=== PATIENT | female | born 1990 | race Caucasian/White ===

== ENCOUNTER 2017-04-15 13:37 | Emergency (ER) | payer BC, MEDICAID ==
[~2017-04-15] VITALS: Ht 149.9 cm; Wt 43.5 kg
[~2017-04-15 13:37] MED LIST: AMOXICILLIN 50500 MG PO; BACTRIM DS 8001 TA1 PO; DICLOFENAC 50MG50 MG PO; DOXYCYCLINE100 M6 PO; FERROUS SULFAT325 M2 PO; LABETALOL 100M100 MG PO; LITHIUM CARB 3300 MG PO; MACROBID 100MG100 MG PO; MOTRIN 400MG.400 MG PO; OC; PERCOCET 5/3251 EACH PO; PRENATAL PLUS1 TA1 PO; PRILOSEC20 M1 PO; TAMIFLU 75MG CA75 MG PO; ZANTAC 150150 MG PO; ZOFRAN4 MG PO
[2017-04-15 13:53] LABS: URINE BILIRUBIN - DIPSTICK NEGATIVE (NEG); URINE BLOOD 1+ (NEG)
[2017-04-15 14:31] LABS: LYMPH # 2.4 K/mm3 (0.7-4.5); LYMPH % 30.4 % (10-50.0)
--- NOTE | 2017-04-15 14:34 | Emergency Room Report ---
See Addendum History of Present Illness Time Seen by MD Conte Presenting Problem in Triage Pt arrived:Walked Presenting Problem:PT REPORTS IS APPROX 7 WEEKS , DARK RED TO BROWNISH VAGINAL SPOTTING FOR APPROX AND HOUR AND CRAMPING IN L LOWER ABD. 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 N Clinical Suspician of Infection? N Mental Status: 1 - Regular (Normal Baseline) Sepsis Risk:Low Sepsis Risk Have you (or family members/close friends) recently traveled outside the [place]? N If Yes, where/when: Have you had exposure to infectious disease within the past month? N TB? Other? Specify: A0 , Rh pos, pos test with EDC by dates 12/07/16, patient of Dr. Espana, with scant brown vaginal spotting and cramping today. No fever or vomiting. No abdominal pain. No back pain or urinary sx. ALLERGIES Coded Allergies: Penicillins (08/16/15) Sulfa (Sulfonamide Antibiotics) (08/16/15) Uncoded Allergies: CODIENE (08/16/15) Home Medications Reported Medications No Known Home Medications History Medical History General CAD? No Angina: No DC: No Hypertension? Yes Hyperlipidemia? No CHF? No DVT? No PE? No COPD? No Asthma? No Anemia? No GERD? No Gastric ulcers? No GI Bleed? No Hernia? No Thyroid Problems? No Hypothyroidism? No CVA? No Seizures? No Diabetes? No Renal Insuffiency? No End Stage Renal Disease? No UTI? No Stones? No BPH? No GB Disease: No Nephritic Syndrome? No Asplenia? No Hepatitis? No Sickle Cell Disease? No Arthritis? No Migraines? No Cataracts? No Glaucoma? No MRSA? No HIV? No TB? No Anxiety? No Depression? No Cancer? 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 Physical Exam Vital Signs Vital Signs Date Time Temp Pulse Resp B/P Pulse O2 O2 Flow FiO2 Ox Delivery Rate 04/15 1522 72 18 94/60 100 04/15 1340 98.6 98 18 104/66 100 General Appearance normal appearance, WD/WN, no apparent distress, thin Eye Exam - bilateral eye normal exam, bilateral eye PERRL, bilateral eye EOMI Neck normal inspection, non-tender, supple, full range of motion Respiratory Status Yes: trachea midline, chest symmetrical, non tender chest. No: respiratory distress, tender on palpation, use of accessory muscles, pain on inspiration, pain on expiration, productive cough, non productive cough. Lung Sounds bilateral: normal breath sounds, lungs clear. Cardiovascular normal exam, regular rate/rhythm, no peripheral edema, no gallop, no JVD, no murmur, no rub, normal peripheral pulses Gastrointestinal normal bowel sounds, normal exam, soft, no organomegaly, no guarding, no rebound Extremities normal range of motion, normal inspection, no pedal edema Pelvic normal external exam, normal adnexa, no cerv. motion tender, no masses, scant blood in cervix, no tissue or clots; no lesions; uterus normal with no mass; no adnexal tenderness or mass, no discharge; no CMT. Nurse present during exam? Yes (Laural) Neurologic alert, normal exam, no motor/sensory deficits, oriented x 3 Skin intact, normal color Medical Decision Making LABS/Meds/Orders Pt receiving controlled substance in ED? No Results/Orders Laboratory Tests 04/15/17 1446: Beta HCG, Quant Cancelled 04/15/17 1420: Beta HCG, Quant 5141.9, WBC 7.9, RBC 4.44, Hgb 14.0, Hct 42.4, MCV 95.6, RDW 12.3, Plt Count 216, MPV 7.2 L, Gran % 63.3, Gran # 5.0, Lymphocytes % 30.4, Monocytes % 4.8, Eosinophils % 1.1, Basophils % 0.3, Lymphocytes # 2.4, Monocytes # 0.4, Eosinophils # 0.1, Basophils # 0.0, PUBS MCHC 33.0, MCH 31.5 H 04/15/17 1416: Ur Chlamydia DNA (PCR) Cancelled, Urine GC DNA Probe Cancelled 04/15/17 1347: C.trachomatis DNA (PETAR) Pending, N.gonorrhoeae RNA Pending, Urine Color YELLOW, Urine Appearance CLEAR, Urine pH 7.0, Ur Specific Husser <= 1.005, Urine Protein NEGATIVE, Urine Ketones NEGATIVE, Urine Blood 1+ H, Urine Nitrate NEGATIVE, Urine Bilirubin NEGATIVE, Urine Urobilinogen 0.2, Ur Leukocyte Esterase NEGATIVE, Urine RBC OCC, Urine WBC OCC, Ur Squamous Epith Cells 3-5, Urine Bacteria TRACE, Urine Glucose NEGATIVE Current Medication Orders Sig/Semaj Start time Last Medication Dose Route Stop Time Status Admin Sodium Chloride 10 ML PRN PRN 04/15 1430 AC IV 04/16 1426 Sodium Chloride 1,000 ML .Q1H1M 04/15 1430 DC 04/15 IV 04/15 1530 1453 Sodium Chloride 10 ML PRN PRN 04/15 1430 AC IV 04/16 1426 Sodium Chloride 1,000 ML .STK-MED ONE 04/15 1427 DC IV Orders Procedure Date/time Status IV SALINE LOCK 04/15 1426 Active CBC WITH AUTO DIFF 04/15 1417 Complete US TRANSVAGINAL PREG 04/15 1416 Active WET PREP 04/15 1416 Complete CARLYN PREP 04/15 1416 Complete BETA-HCG, QUANT 04/15 1416 Complete URINALYSIS/COMPLETE 04/15 1348 Complete URINE 04/15 1348 Complete CHLAMYDIA/GC 04/15 1347 Active XRAY/CT/US XRAY/CT/US Ultrasound pelvis US Interpretation by reviewed by me (d/w tech) US results good flow; pos intrauterine gestational sac w/o any further findings; no fluid. Departure Departure Time of Disposition 1534 Disposition DC Home or Self Care(routine) Clinical Impression Primary Impression: Vaginal bleeding during , antepartum Qualifiers: Trimester: first trimester Qualified Code: O46.91 - Antepartum hemorrhage, unspecified, first trimester Condition STABLE Referrals Cedric SEE,Haider Birch MD,Chaz (Family) Patient Instructions Threatened Additional Instructions See Dr. Espana for repeat bloodwork (quantitative hcG) in 72 hours and recheck. Discharge Counseling Counseled pt/family regarding diagnosis, test results, home care, follow up needs Prescriptions Current Visit Scripts No Known Home Medications ED Critical Care Critical Care No at 1531
--- OUTSIDE RECORDS SUMMARY | 2017-04-15 14:51 | External Medical Summary Rpt ---
Author Author , NICK Organization NICK Address Unknown Phone [email or web address] Care Team Providers Care It Network Engineer Name Role Phone A Thien CLEMENTS MD PSC, A Unavailable Unavailable Thien CLEMENTS MD PSC UJVE REDDY CHA, JUVE Unavailable Unavailable JR JUAN PABLO BUENO MD, Unavailable Unavailable MALORIE BARBOZA MD Unavailable Unavailable ESPANA MATTY, SEPANA Unavailable Unavailable MATTY MALORIE MATTY, ESPANA Unavailable Unavailable MATTY [facility] Unavailable Unavailable [place], [facility] Unavailable Unavailable [facility] Unavailable Unavailable [facility] Unavailable Unavailable INC, [facility], Unavailable Unavailable [facility], Unavailable Unavailable [facility] DEVONTE PURVIS, Unavailable Unavailable DEVONTE PURVIS MARTINEZ VAL, MARTINEZ Unavailable Unavailable VAL MARTINEZ VAL, MARTINEZ Unavailable Unavailable VAL Sebastian Kenney MD, Unavailable Unavailable Sebastian Kenney MD [facility], Unavailable Unavailable [facility] NISHA KNOX, Unavailable Unavailable NISHA REDDY ABILIO SCIFRES ANG, SCIFRES Unavailable Unavailable ANG JAYDON ESCOTO, SCIFRES Unavailable Unavailable TIGIST HENDERSON, SHAYNA Unavailable Unavailable SANTIAGO Purpose Continuity of Care Document - 11-04-2012 through 2016 Problems Code Diagnosis DOS Provider Status I10 ESSENTIAL 10-31-2016 [facility] HYPERTENSIO INC N J101 FLU D/T OTH 10-31-2016 [facility] VIRUS OTH INC RESP MANIFESTATI ONS [id number] ENCOUNTER 10-11-[address] [facility] INITIAL PHYSICIAN PRESCRIPTIO GROUP N CONTRACEPT PILLS Z7251 HIGH RISK 10-11-[address] [facility] HETEROSEXUA PHYSICIAN L BEHAVIOR GROUP 6262 EXCESSIVE 02-02-[address] [facility] OR FREQUENT PHYSICIANS GROUP MENSTRUATIO N 6264 IRREGULAR 02-02-[address] [facility] MENSTRUAL PHYSICIANS CYCLE GROUP V2541 SURVEILLANC 02-02-[address] [facility] E PREV PHYSICIANS PRESCRIBED GROUP CONTRACEPT PILL 3671 MYOPIA 01-06-2015 SCIFRES ANG 6918 OTHER 12-27-2014 Gera BATES MD [facility] DERMATITIS AND RELATED CONDITIONS V255 INSERTION 09-07-[address] [facility] OF PHYSICIANS IMPLANTABLE GROUP SUBDERMAL CONTRACEPTI VE V242 ROUTINE 08-31-2014 [facility] FOLLOW-UP V7231 ROUTINE 08-31-[address] [facility] GYNECOLOGIC PHYSICIANS AL GROUP EXAMINATION 49505 FETOPELVIC 07-14-[address] [facility] DISPROPORTI PHYSICIANS ON, GROUP DELIVERED 42234 C/S DELIV 07-14-[address] [facility] W/O INDICAT PHYSICIANS DELIV W/WO GROUP ANTPRTM COND V270 OUTCOME OF 07-14-[address] [facility] DELIVERY PHYSICIANS SINGLE GROUP LIVEBORN 99772 POST TERM 07-12-2014 MAL[facility]IE MATTY ANTEPARTUM COND/COMPLI CATION 89616 POOR 07-12-2014 [facility] GROWTH MGMT MOTH ANTPRTM COND/COMP V220 SUPERVISION 07-05-2014 MAL[facility] MATTY OF NORMAL FIRST 55413 THREATENED 05-07-2014 [facility] ANTEPARTUM V283 ENCOUNTER 02-18-2014 [facility] M[facility]Y ROUTINE SCREEN MALFORMATIO N ULTRASONIC 54958 TRANSIENT 02-17-2014 [facility] N OF INC ANTEPARTUM 6921 CONTACT 01-05-2014 [facility] DERMATITIS& OTHER ECZEMA DUE OILS&GREASE S 56804 OTHER 12-03-2013 [facility] MATTY SPECIFED COMPLICATIO N ANTEPARTUM 23383 PAP SMER 11-26-2013 MARTINEZ VAL CERV W/LW GRADE SQUAMOUS INTRAEPITH LES V221 SUPERVISION 11-26-2013 MART[facility]Z VAL OF OTHER NORMAL V7242 11-26-2013 [facility] MATTY EXAMINATION OR TEST POSITIVE RESULT V745 SCREENING 11-26-2013 MARTINEZ VAL EXAMINATION FOR VENEREAL DISEASE 616.4 616.4 09-10-2013 [facility] 305.1 305.1 04-08-2013 [place] TOBACCO USE [facility] 848.3 848.3 04-08-2013 Marni SPRAIN OF [facility] E000.0 E000.0 04-08-2013 [facility] DONE FOR INCOME OR PAY E927.0 E927.0 04-08-2013 [place] OVEREXERTIO [facility] N FROM Hospital SUDDEN STRENUOUS MOVEMENT V14.5 V14.5 04-08-2013 Marni HX-NARCOTIC [facility] V14.8 V14.8 04-08-2013 Marni HX-DRUG [facility] ALLERGY [facility] 276.51 276.51 11-04-2012 [place] DEHYDRATION [facility] 599.0 599.0 URIN 11-04-2012 [place] TRACT [facility] INFECTION Hospital NOS [id number] Allergies, Adverse Reactions, Alerts Type Drug Allergy Adverse Reaction to Substance Substance Reaction Severity SULFA (sulfonamide) Unknown Unknown Codeine Unknown Unknown Medications Na ND Rx Da Fi Fi Am Da Di Ph RX Ph St me C No te ll ll ou ys ag ar # ys at rm s nt no ma ic us Or Da si cy ia de te s n re d OS 47 02 03 7. 7 00 WA Ac EL 78 -1 -1 00 00 L- ti TA 10 5- 0- 0 07 MA ve LA 47 20 20 47 RT 01 17 17 09 R 3 79 PH PH AR OS MA CY 75 #5 MG 91 CA PS UL E LI 63 12 0 No DO 32 -2 CA 30 6- Lo IN 20 20 ng E 11 13 er HC 0 L Ac 1% ti ve AL IN 51 07 0 No DO 07 -2 ME 90 4- Lo TH 19 20 ng AC 02 13 er IN 0 Ac 25 ti ve MG CA PS UL E SO 00 02 0 No DI 40 -1 UM 97 9- Lo 98 20 ng CH 30 13 er LO 9 RI Ac DE ti ve 0. 9% SO LEA TI ON Sa 63 02 0 No li 80 -1 ne 70 9- Lo 10 20 ng Fl 07 13 er us 5 h Ac 10 ti ML ve Sy ri ng e ON 00 02 0 No DA 64 -1 NS 16 9- Lo ET 08 20 ng RO 02 13 er N 5 HC Ac L ti 4 ve MG /2 ML AL Ni 00 02 0 No tr 09 -1 of 32 9- Lo ur 13 20 ng an 19 13 er to 3 in Ac ti 10 ve 0M G Ca ps ul e Vital Signs 09-10-2013 16:10 Name Value Interpretat Reference Comment ion Range BP 69 mm[Hg] Diastolic BP Systolic 111 mm[Hg] Heart 96 /min Rate/Pulse O2% 100 % Respiratory 20 /min Rate 09-10-2013 15:00 Name Value Interpretat Reference Comment ion Range BP 69 mm[Hg] Diastolic BP Systolic 110 mm[Hg] Heart 92 /min Rate/Pulse O2% 100 % Respiratory 20 /min Rate 04-08-2013 07:26 Name Value Interpretat Reference Comment ion Range Body 98.6 [degF] Temperature BP 64 mm[Hg] Diastolic BP Systolic 105 mm[Hg] Heart 100 /min Rate/Pulse O2% 99 % Respiratory 18 /min Rate 04-08-2013 07:25 Name Value Interpretat Reference Comment ion Range Body 98.6 [degF] Temperature BP 64 mm[Hg] Diastolic BP Systolic 105 mm[Hg] Heart 100 /min Rate/Pulse O2% 99 % Respiratory 18 /min Rate 11-04-2012 20:55 Name Value Interpretat Reference Comment ion Range Body 98.4 [degF] Temperature BP 65 mm[Hg] Diastolic BP Systolic 110 mm[Hg] Heart 108 /min Rate/Pulse O2% 99 % Respiratory 18 /min Rate 11-04-2012 19:46 Name Value Interpretat Reference Comment ion Range Body 99 [degF] Temperature BP 65 mm[Hg] Diastolic BP Systolic 104 mm[Hg] Heart 100 /min Rate/Pulse O2% 99 % Respiratory 18 /min Rate Results Labs Lab Lab Date Result Refere Interp Status Commen Order Detail nces retati t Range on Blood group antibody screen [Presence] in Serum or Plasma (04-10-2017 12:06) Blood NEGATIV NEGATIV complet group 017 E E ed antibod 12:06 y screen [Presen ce] in Serum or Plasma Rh [Type] in Blood (04-10-2017 12:06) Rh POSITIV complet [Type] 017 E ed in 12:06 Blood ABO group [Type] in Blood (04-10-2017 12:06) ABO O complet group 017 ed [Type] 12:06 in Blood COMPREHENSIVE METABOLIC PANEL (11-04-2012 19:40) Glucose 84 74-106 complet 013 mg/dL ed Bld-mCn 19:40 c BUN 8 mg/dL 7-18 complet Bld-mCn 013 ed c 19:40 Creat 0.9 0.6-1.0 complet SerPl-m 013 mg/dL ed Cnc 19:40 ESTIMAT 11-04- 70 50-200 complet ED 013 ML/MIN ed CREATIN 19:40 INE CLEARAN CE GFR 78 59- complet (ESTIMA 013 ML/MIN ed MARCUS) 19:40 Sodium 138 136-145 complet SerPl-s 013 mmoL/L ed Cnc 19:40 Potassi 4.4 3.5-5.1 complet um 013 mmoL/L ed SerPl-s 19:40 Cnc Chlorid 102 98-107 complet e 013 mmoL/L ed SerPl-s 19:40 Cnc CO2 28 21.0-32 complet SerPl-s 013 mmoL/L .0 ed Cnc 19:40 Calcium 9.4 8.5-10. complet 013 mg/dL 1 ed SerPl-m 19:40 Cnc Prot 6.9 6.4-8.2 complet SerPl-m 013 gm/dL ed Cnc 19:40 Albumin 3.9 3.4-5.0 complet 013 gm/dL ed SerPl-m 19:40 Cnc Globuli 3.0 1.3-3.2 complet n 013 gm/dL ed Ser-mCn 19:40 c Albumin 1.3 UNK 1.1-1.8 complet /Glob 013 ed SerPl-m 19:40 Rto Bilirub 0.4 0.2-1.0 complet 013 mg/dL ed SerPl-m 19:40 Cnc AST 11-04- 41 U/L 15-37 complet SerPl-c 013 ed Cnc 19:40 ALT 11-04- 69 U/L 30-65 complet SerPl-c 013 ed Cnc 19:40 ALP 11-04- 142 U/L 50-136 complet SerPl-c 013 ed Cnc 19:40 CBC with AUTO DIFF (11-04-2012 19:40) WBC # 02-19-2 11.7 4.8-10. complet Bld 013 K/MM3 8 ed Auto 19:40 RBC # 11-04-2 5.42 4.2-5.4 complet Bld 013 M/mm3 ed Auto 19:40 Hgb 02-19-2 16.4 12.2-16 complet Bld-mCn 013 g/dL .2 ed c 19:40 Hct Fr 02-19-2 51.3 % 37.0-47 complet Bld 013 .0 ed 19:40 MCV RBC 02-19-2 94.6 fl 82.2-97 complet 013 .8 ed 19:40 MCH RBC 02-19-2 30.2 pg 27-31.2 complet Qn 013 ed Auto 19:40 MEAN 02-19-2 31.9 31.8-35 complet CORPUSC 013 g/dl .4 ed ULAR 19:40 HGB CONC RDW RBC -19-2 12.4 % 11.5-17 complet Auto 013 .5 ed 19:40 Platele 02-19-2 255 142-424 complet t Bld 013 K/mm3 ed Ql 19:40 Manual MEAN 19-2 7.5 fl 7.4-10. complet PLATELE 013 4 ed T 19:40 VOLUME Granulo 02-19-2 84.0 % 37.0-80 complet cytes 013 .0 ed Fr Bld 19:40 Auto LYMPH % 02-19-2 10.5 % 10-50.0 complet 013 ed 19:40 Monocyt 02-19-2 4.5 % 1.7-9.3 complet es Fr 013 ed Bld 19:40 Auto Eosinop 02-19-2 0.8 % 0.1-12. complet hil Fr 013 0 ed Bld 19:40 Auto Basophi 02-19-2 0.1 % 0.1-2.0 complet ls Fr 013 ed Bld 19:40 Auto Granulo 02-19-2 9.9 1.8-7.8 complet cytes # 013 K/mm3 ed Bld 19:40 Auto Lymphoc 02-19-2 1.2 0.7-4.5 complet ytes Fr 013 K/mm3 ed Bld 19:40 Auto Monocyt 02-19-2 0.5 0.1-1.0 complet es # 013 K/mm3 ed Bld 19:40 Auto Eosinop 02-19-2 0.1 0.0-0.4 complet hil # 013 K/mm3 ed Bld 19:40 Auto Basophi 02-19-2 0.0 0-0.2 complet ls # 013 K/MM3 ed Bld 19:40 Auto B-HCG Ur Ql (11-04-2012 19:35) B-HCG 11-04-2 NEGATIV NEG complet Ur Ql 013 E ed 19:35 URINALYSIS/COMPLETE (11-04-2012 19:35) URINE 11-04- YELLOW YELLOW complet COLOR 013 ed 19:35 URINE 11-04- Sl CLEAR complet APPEARA 013 Cloudy ed NCE 19:35 URINE 11-04-2 NEGATIV NEG complet GLUCOSE 013 E ed - 19:35 DIPSTIC K URINE 11-04-2 1+ NEG complet BILIRUB 013 ed IN - 19:35 DIPSTIC K URINE 11-04-2 3+ NEG complet KETONE 013 mg/dL ed 19:35 URINE 11-04-2 1.025 1.005-1 complet SPECIFI 013 UNK .030 ed C 19:35 GRAVITY URINE 11-04-2 1+ NEG complet BLOOD 013 ed 19:35 URINE 11-04-2 6.0 UNK 5.0-8.5 complet PH 013 ed 19:35 URINE 11-04-2 NEGATIV NEG complet PROTEIN 013 E mg/dL ed - 19:35 DIPSTIC K URINE 11-04-2 0.2 NEG complet UROBILI 013 E.U./dL ed NOGEN - 19:35 DIPSTIC K URINE 11-04-2 NEGATIV NEG complet NITRATE 013 E ed - 19:35 DIPSTIC K URINE 11-04-2 NEGATIV NEG complet LEUK 013 E ed ESTERAS 19:35 E URINE 11-04-2 OCC 0 complet RBC 013 rbc/hpf ed 19:35 URINE 11-04-2 3-5 O complet WBC 013 wbc/hpf ed 19:35 URINE 11-04-2 20-50 0-5 complet SQUAMOU 013 #/hpf ed S CELLS 19:35 URINE 11-04-2 2+ O complet BACTERI 013 ed A 19:35 Procedures Procedure DOS Code Location Performer Comment IAADIADOO 76847 [facility] STREPT[facility] INC CCUS GROUP A IAADIADOO 27980 [facility] [place] [address] [facility]PATITIS [facility] B INC INC SURFACE ANTIGEN HEPATITIS 73183 [facility] C [facility] ANTIBODY INC INC OPHTH 39799 [facility] 5 ANG ANG XM&EVAL COMPRHNSV ESTAB PT 1/> ETONOGEST J7307 [facility] MALORIE REL 4 PHYSICIAN MATTY CNTRACPT S GROUP IMPL SYS INCL IMPL & SPL INSJ [address] [facility] MALORIE NON-BIODE 4 PHYSICIAN MATTY GRADABLE S GROUP DRUG DELIVERY IMPLANT URINE [address] [facility] MALORIE 4 PHYSICIAN MATTY TEST S GROUP VISUAL COLOR CMPRSN METHS CYTP C/V 89191 [facility]LES[facility] AUTO THIN 4 LLC ER JR ABILIO LYR PREPJ SCR MNL RESCR PHYS [address] [facility] DONATORAN JR DELIVERY 4 PHYSICIAN JUAN PABLO ONLY S GROUP 22651 MALORIE ESPANA DELIVERY 4 MATTY MATTY ONLY W/POSTPAR JESUSITA CARE ANESTHESI 44943 [facility] A 4 ANESTH SANTIAGO OF THE DELIVERY BLUE ONLY US PREG 78381 ESPANA ESPANA UTERUS 4 MATTY MATTY REAL TIME F/U TRNSABDL PER FETUS DOPPLER 50319 ESPANA ESPANA VELOCIMET 4 MATTY MATTY RY UMBILICAL ARTERY 21179 ESPANA MALORIE BIOPHYSIC 4 MATTY MATTY AL PROFILE W/O NON-STRES S TESTING 35676 ESPANA ESPANA BIOPHYSIC 4 MATTY MATTY AL PROFILE W/O NON-STRES S TESTING DOPPLER 03836 ESPANA ESPANA VELOCIMET 4 MATTY MATTY RY UMBILICAL ARTERY US PREG 91716 ESPANA ESPANA UTERUS 4 MATTY MATTY REAL TIME F/U TRNSABDL PER FETUS CUL BACT 19751 COMBINED COMBINED XCPT 4 PHYSICIAN PHYSICIAN URINE S LA S LA BLOOD/STO OL AEROBIC ISOL US PREG 06477 ESPANA ESPANA UTERUS 4 MATTY MATTY REAL TIME F/U TRNSABDL PER FETUS DOPPLER 62194 ESPANA ESPANA VELOCIMET 4 MATTY MATTY RY UMBILICAL ARTERY 13544 ESP[facility] ESPANA BIOPHYSIC 4 MATTY MATTY AL PROFILE W/O NON-STRES S TESTING THERAPEUT 61294 [facility] IC [facility] PROPHYLAC INC INC TIC/DX INJECTION SUBQ/IM 70568 MAL[facility] ESPANA NONSTRESS 4 [place] [address] [facility] INFUSION [facility] THERAPY/P INC INC ROPHYLAXI S /DX 1ST TO 1 HR CULTURE 23585 [facility]IZ BACTERIAL 4 [facility] II BHARAT INC QUANTTATI VE COLONY COUNT URINE URNLS DIP 87822 [facility] STICK/TAB INC INC LET REAGENT AUTO MICROSCOP Y GLUCOSE 38293 MAL[facility] ESPANA TOLERANCE 4 MATTY MATTY TEST GTT 3 SPECIMENS US PREG 11820 MALORIE ESPANA UTERUS 4 MATTY MATTY AFTER 1ST TRIMEST 1/ GESTATION TRANSFERA 44025 [facility] SE [facility] ASPARTATE INC INC AMINO AST SGOT TRANSFERA 35231 [facility] SE [facility] ALANINE INC INC AMINO ALT SGPT BLOOD 22726 [facility] COUNT 4 [facility] COMPLETE INC INC AUTO&AUTO DIFRNTL WBC BASIC 09288 [facility] METABOLIC 4 [facility] [place] [address] [facility] BLOOD/URI 4 [facility] C ACID INC INC THROMBOPL 85700 [facility] ASTIN [facility] TIME INC INC PARTIAL PLASMA/WH OLE BLOOD FIBRIN 90953 [facility] DGRADJ 4 [facility] PRODUCTS INC INC D-DIMER QUAL/SEMI ODALIS FIBRINOGE 65333 [facility] N [facility] ACTIVITY INC INC PROTHROMB 80096 [facility] IN TIME 4 [facility] INC INC US PREG 80164 MALORIE ESPANA UTERUS 4 MATTY MATTY REAL TIME W/IMAGE DCMTN TRANSVAG CYTP 96363 M[facility] MARTINEZ CERVICAL/ 4 VAL VAL VAGINAL REQ INTERP PHYSICIAN CYTP C/V 04579 M[facility]Z MARTINEZ AUTO THIN 4 VAL VAL LYR PREPJ SCR MNL RESCR PHYS URINE 22364 MALORIE ESPANA 4 MATTY MATTY TEST VISUAL COLOR CMPRSN METHS IADNA 35769 M[facility]Z MARTINEZ CHLAMYDIA 4 VAL VAL TRACHOMAT IS AMPLIFIED PROBE TQ IADNA 55508 MARTINEZ MARTINEZ NEISSERIA 4 VAL VAL GONORRHOE AE AMPLIFIED PROBE TQ INCIS 71.09 HOSEA VULVA/PER XIMENA SEE INEUM NEC Encounters Encounter Start End Date Code Location Performer Type Date HOSPITAL [facility] - 7 7 [facility] OUTPATIEN INC T OFFICE 40002 [facility] OUTWESLEYEN 7 7 [facility] T [facility] 10 INC MINUTES HOSPITAL [facility] - 7 7 [facility] OUTPATIEN [facility] T OFFICE [address] [facility] MALORIE OUTPATIEN 7 7 PHYSICIAN T VISIT GROUP 15 MINUTES OFFICE [address] [facility] MALORIE OUTPATIEN 5 5 PHYSICIAN MATTY T VISIT S GROUP 15 MINUTES OFFICE 91331 Gera SANCHES OUTPATIEN 5 5 TYREE SEE T VISIT PSC 15 MINUTES OFFICE [address] [facility] MALORIE OUTPATIEN 4 4 PHYSICIAN MATTY T VISIT S GROUP 25 MINUTES OFFICE [address] [facility] MALORIE OUTPATIEN 4 4 PHYSICIAN MATTY T VISIT S GROUP 15 MINUTES OFFICE 19953 [facility] ESPANA OUTPATIEN 4 4 MATTY MATTY T VISIT 15 MINUTES OFFICE 42769 [facility] ESPANA OUTPATIEN 4 4 MATTY MATTY T VISIT 15 MINUTES OFFICE 33393 [facility] ESPANA OUTPATIEN 4 4 MATTY MATTY T VISIT 15 MINUTES OFFICE 55035 [facility] ZAVALETAE OUTPATIEN 4 4 MATTY MATTY T VISIT 15 MINUTES HOSPITAL [facility] - 4 4 [facility] OUTPATIEN INC T [facility]OSPITAL [facility] - 4 4 [facility] OUTPATIEN INC T OFFICE 94531 ESPANA ESPANA OUTPATIEN 4 4 MATTY MATTY T VISIT 15 MINUTES OFFICE 15298 ESPANA ESPANA OUTPATIEN 4 4 MATTY MATTY T VISIT 15 MINUTES OFFICE 25976 ESPANA ESPANA OUTPATIEN 4 4 MATTY MATTY T VISIT 15 MINUTES OFFICE 75907 ESPANA ESPANA OUTPATIEN 4 4 MATTY MATTY T VISIT 5 MINUTES OFFICE 58664 ESPANA ESPANA OUTPATIEN 4 4 MATTY MATTY T VISIT 15 MINUTES OFFICE 75803 ESPANA ESPANA OUTPATIEN 4 4 MATTY MATTY T VISIT 15 MINUTES OFFICE 72827 ESPANA ESPANA OUTPATIEN 4 4 MATTY MATTY T VISIT 15 MINUTES OFFICE 35429 ESPANA ESPANA OUTPATIEN 4 4 MATTY MATTY T VISIT 15 MINUTES [facility] T OFFICE 76504 ESPANA ESPANA OUTPATIEN 4 4 MATTY MATTY T VISIT 15 MINUTES OFFICE 74290 [facility] OUTPATIEN 4 4 T VISIT 15 MINUTES OFFICE 90330 ESPANA ESPANA OUTPATIEN 4 4 MATTY MATTY T VISIT 15 MINUTES OFFICE 78774 ESPANA ESPANA OUTPATIEN 4 4 MATTY MATTY T VISIT 25 MINUTES Emergency REJI BUENO MD (ER) 3 14:33 3 16:10 [facility] Emergency REJI Kenney MD (ER) 3 07:00 3 07:28 [facility] Emergency REJI PURVIS (ER) 3 18:56 3 20:56 [facility]
--- OUTSIDE RECORDS SUMMARY | 2017-04-15 14:51 | External Medical Summary Rpt ---
Author Author , NICK Organization NICK Address Unknown Phone [email or web address] Care Team Providers Care School Library Media Specialist Name Role Phone A Thien CLEMENTS MD PSC, A Unavailable Unavailable Thien CLEMENTS MD PSC JUVE REDDY CHA, JUVE Unavailable Unavailable JR JUAN PABLO BUENO MD, Unavailable Unavailable MALORIE BARBOZA MD Unavailable Unavailable ESPANA MATTY, ESPANA Unavailable Unavailable MATTY MALORIE MATTY, ESPANA Unavailable Unavailable MATTY [facility] Unavailable Unavailable [place], [facility] [place] [facility] Unavailable Unavailable [facility] Unavailable Unavailable [facility] Unavailable Unavailable INC, [facility] Unavailable Unavailable [facility], Unavailable Unavailable [facility] DEVONTE PURVIS, Unavailable Unavailable [...] HOSP VIRUS OTH INC RESP MANIFESTATI ONS [id number] ENCOUNTER 10-11-2016 [facility] INITIAL PHYSICIAN PRESCRIPTIO GROUP N CONTRACEPT PILLS Z7251 HIGH RISK 10-11-2016 [facility] HETEROSEXUA PHYSICIAN L BEHAVIOR GROUP 6262 EXCESSIVE 02-02-2015 [facility] OR FREQUENT PHYSICIANS GROUP MENSTRUATIO N 6264 IRREGULAR 02-02-2015 [facility] MENSTRUAL PHYSICIANS CYCLE GROUP V2541 SURVEILLANC 02-02-2015 [facility] E PREV PHYSICIANS PRESCRIBED GROUP CONTRACEPT PILL 3671 MYOPIA 01-06-2015 SCIFRES ANG 6918 OTHER 12-27-2014 Gera BATES MD PSC DERMATITIS AND RELATED CONDITIONS V255 INSERTION 09-07-2014 [facility] OF PHYSICIANS IMPLANTABLE GROUP SUBDERMAL CONTRACEPTI VE V242 ROUTINE 08-31-2014 [facility] FOLLOW-UP V7231 ROUTINE 08-31-2014 [facility] GYNECOLOGIC PHYSICIANS AL GROUP EXAMINATION 07367 FETOPELVIC 07-14-2014 [facility] DISPROPORTI PHYSICIANS ON, GROUP DELIVERED 29840 C/S DELIV 07-14-2014 [facility] W/O INDICAT PHYSICIANS DELIV W/WO GROUP ANTPRTM COND V270 OUTCOME OF 07-14-2014 [facility] DELIVERY PHYSICIANS SINGLE GROUP LIVEBORN 16439 POST TERM 07-12-2014 MAL[facility]IE MATTY ANTEPARTUM COND/COMPLI CATION 29036 POOR 07-12-2014 [facility] GROWTH MGMT MOTH ANTPRTM COND/COMP V220 SUPERVISION 07-05-2014 [facility] MATTY OF NORMAL FIRST 25280 THREATENED 05-07-2014 [facility] ANTEPARTUM V283 ENCOUNTER 02-18-2014 [facility] MATTY ROUTINE SCREEN MALFORMATIO N ULTRASONIC 29782 TRANSIENT 02-17-2014 [facility] N OF INC ANTEPARTUM 6921 CONTACT 01-05-2014 FIELD [facility] DERMATITIS& OTHER ECZEMA DUE OILS&GREASE S 34910 OTHER 12-03-2013 [facility] SPECIFED COMPLICATIO N ANTEPARTUM 08134 PAP SMER 11-26-2013 [facility] VAL CERV W/LW GRADE SQUAMOUS INTRAEPITH LES V221 SUPERVISION 11-26-2013 [facility] VAL OF OTHER NORMAL V7242 11-26-2013 MAL[facility] MATTY EXAMINATION OR TEST POSITIVE RESULT V745 SCREENING 11-26-2013 [facility] VAL EXAMINATION FOR VENEREAL DISEASE 616.4 616.4 09-10-2013 [facility] 305.1 305.1 04-08-2013 [place] TOBACCO USE [facility] 848.3 848.3 04-08-2013 Marni SPRAIN OF [facility] E000.0 E000.0 04-08-2013 [facility] DONE FOR INCOME OR PAY E927.0 E927.0 04-08-2013 [place] OVEREXERTIO [facility] N FROM Hospital SUDDEN STRENUOUS MOVEMENT V14.5 V14.5 04-08-2013 Marni HX-NARCOTIC [facility] V14.8 V14.8 04-08-2013 [facility]arni HX-DRUG [facility] ALLERGY [facility] 276.51 276.51 11-04-2012 [place] DEHYDRATION [facility] 599.0 599.0 URIN 11-04-2012 [place] TRACT [facility] INFECTION Hospital NOS [id number] Allergies, Adverse Reactions, Alerts Type Drug Allergy [...] 10 5- 0- [address] 47 20 20 47 RT 01 17 [...] Procedure DOS Code Location Performer Comment IAADIADOO 45323 [facility] STREPT[facility] INC CCUS GROUP A IAADIADOO 43567 [facility] [place] [address] [facility] HEPATITIS 7 [facility] B INC INC SURFACE ANTIGEN HEPATITIS 18941 [facility] C [facility] ANTIBODY INC INC OPHTH 68612 [facility] 5 ANG ANG XM&EVAL COMPRHNSV ESTAB PT 1/> ETONOGEST J7307 [facility] MALORIE REL 4 PHYSICIAN MATTY CNTRACPT S GROUP IMPL SYS INCL IMPL & SPL INSJ 89681 [facility] MALORIE NON-BIODE 4 PHYSICIAN MATTY GRADABLE S GROUP DRUG DELIVERY IMPLANT URINE 76830 [facility] MALORIE 4 PHYSICIAN MATTY TEST S GROUP VISUAL COLOR CMPRSN METHS CYTP C/V 06599 [facility] 4 [facility] ER JR ABILIO LYR PREPJ SCR MNL RESCR PHYS 38057 [facility] DONATORAN JR DELIVERY 4 PHYSICIAN JUAN PABLO ONLY S GROUP 76941 MALORIE ESPANA DELIVERY 4 MATTY MATTY ONLY W/POSTPAR JESUSITA CARE ANESTHESI 80597 [facility] A 4 ANESTH SANTIAGO OF THE DELIVERY BLUE ONLY US PREG 56611 ESPANA ESPANA UTERUS 4 MATTY MATTY REAL TIME F/U TRNSABDL PER FETUS DOPPLER 62730 ESPANA ESPANA VELOCIMET 4 MATTY MATTY RY UMBILICAL ARTERY 12736 ESPANA MALORIE BIOPHYSIC 4 MATTY MATTY AL PROFILE W/O NON-STRES S TESTING 16796 ESPANA ESPANA BIOPHYSIC 4 MATTY MATTY AL PROFILE W/O NON-STRES S TESTING DOPPLER 92880 ESPANA ESPANA VELOCIMET 4 MATTY MATYT RY UMBILICAL ARTERY US PREG 13550 ESPANA ESPANA UTERUS 4 MATTY MATTY REAL TIME F/U TRNSABDL PER FETUS CUL BACT 60138 COMBINED COMBINED XCPT 4 PHYSICIAN PHYSICIAN URINE S LA S LA BLOOD/STO OL AEROBIC ISOL US PREG 77693 ESP[facility] ESPANA UTERUS 4 MATTY MATTY REAL TIME F/U TRNSABDL PER FETUS DOPPLER 02746 ESP[facility] ESPANA VELOCIMET 4 MATTY MATTY RY UMBILICAL ARTERY 26527 ESP[facility] ESPANA BIOPHYSIC 4 MATTY MATTY AL PROFILE W/O NON-STRES S TESTING THERAPEUT 22673 [facility] IC [facility] PROPHYLAC INC INC TIC/DX INJECTION SUBQ/IM 53901 MALORIE ESPANA NONSTRESS 4 [place] [address] [facility] INFUSION 4 [facility] THERAPY/P INC INC ROPHYLAXI S /DX 1ST TO 1 HR CULTURE 77458 [facility] BACTERIAL 4 [facility] II BHARAT INC QUANTTATI VE COLONY COUNT URINE URNLS DIP 57674 [facility] STICK/TAB INC INC LET REAGENT AUTO MICROSCOP Y GLUCOSE 52442 MALORIE ESPANA TOLERANCE 4 MATTY MATTY TEST GTT 3 SPECIMENS US PREG 98590 MALORIE ESPANA UTERUS 4 MATTY MATTY AFTER 1ST TRIMEST 1/ GESTATION TRANSFERA 65157 [facility] SE [facility] ASPARTATE INC INC AMINO AST SGOT TRANSFERA 70645 [facility] SE [facility] ALANINE INC INC AMINO ALT SGPT BLOOD 12200 [facility] COUNT 4 [facility] COMPLETE INC INC AUTO&AUTO DIFRNTL WBC BASIC 93601 [facility] METABOLIC 4 [facility] [place] [address] [facility] BLOOD/URI 4 [facility] C ACID INC INC THROMBOPL 82371 [facility] ASTIN 4 [facility] TIME INC INC PARTIAL PLASMA/WH OLE BLOOD FIBRIN 10983 [facility] DGRADJ 4 [facility] PRODUCTS INC INC D-DIMER QUAL/SEMI ODALIS FIBRINOGE 53778 [facility] N [facility] ACTIVITY INC INC PROTHROMB 28509 [facility] IN TIME 4 [facility] INC INC US PREG 36857 MALORIE ESPANA UTERUS 4 MATTY MATTY REAL TIME W/IMAGE DCMTN TRANSVAG CYTP 54247 [facility] MARTINEZ CERVICAL/ 4 VAL VAL VAGINAL REQ INTERP PHYSICIAN CYTP C/V 45561 [facility] MARTINEZ AUTO THIN 4 VAL VAL LYR PREPJ SCR MNL RESCR PHYS URINE 12468 MALORIE ESPANA 4 MATTY MATTY TEST VISUAL COLOR CMPRSN METHS IADNA 11066 [facility] MARTINEZ CHLAMYDIA 4 VAL VAL TRACHOMAT IS AMPLIFIED PROBE TQ IADNA 91683 [facility] MART[facility] NEISSERIA 4 VAL VAL GONORRHOE AE AMPLIFIED PROBE TQ INCIS 71.09 [place] VULVA/PER XIMENA SEE INEUM NEC Encounters Encounter Start End Date Code Location Performer Type Date HOSPITAL [facility] - 7 7 [facility] OUTPATIEN INC T OFFICE 58722 [facility] OUTWESLEYEN 7 7 [facility] 10 INC MINUTES [facility]OSP[facility] 7 7 [facility] T OFFICE 81723 [facility] MALORIE OUTPATIEN 7 7 PHYSICIAN T VISIT GROUP 15 MINUTES OFFICE 86808 [facility] MALORIE OUTPATIEN 5 5 PHYSICIAN MATTY T VISIT S GROUP 15 MINUTES OFFICE 56323 Gera SANCHES OUTPATIEN 5 5 TYREE SEE T VISIT PSC 15 MINUTES OFFICE 64902 [facility] MALORIE OUTPATIEN 4 4 PHYSICIAN MATTY T VISIT S GROUP 25 MINUTES OFFICE 40358 [facility] MALORIE OUTPATIEN 4 4 PHYSICIAN MATTY T VISIT S GROUP 15 MINUTES OFFICE 04420 [facility] ESPANA OUTPATIEN 4 4 MATTY MATTY T VISIT 15 MINUTES OFFICE 50444 [facility] ESPANA OUTPATIEN 4 4 MATTY MATTY T VISIT 15 MINUTES OFFICE 01704 [facility] ESPANA OUTPATIEN 4 4 MATTY MATTY T VISIT 15 MINUTES OFFICE 79561 MAL[facility] ZAVALETAE OUTPATIEN 4 4 MATTY MATTY T VISIT 15 MINUTES HOSPITAL [facility] - 4 4 [facility] OUTPATIEN INC T HOSPITAL [facility] - 4 4 [facility] OUTPATIEN INC T OFFICE 06617 [facility] ESP[facility] OUTPATIEN 4 4 MATTY MATTY T VISIT 15 MINUTES OFFICE 02526 [facility] OUTPATIEN 4 4 MATTY MATTY T VISIT 15 MINUTES OFFICE 33877 [facility] ESP[facility] OUTPATIEN 4 4 MATTY MATTY T VISIT 15 MINUTES OFFICE 91058 [facility] ESP[facility] OUTPATIEN 4 4 MATTY MATTY T VISIT 5 MINUTES OFFICE 71050 ESP[facility] ESPANA OUTPATIEN 4 4 MATTY MATTY T VISIT 15 MINUTES OFFICE 24376 [facility] ESPANA OUTPATIEN 4 4 MATTY MATTY T VISIT 15 MINUTES OFFICE 86665 [facility] OUTPATIEN 4 4 MATTY MATTY T VISIT 15 MINUTES OFFICE 15718 [facility] OUTPATIEN 4 4 MATTY MATTY T VISIT 15 MINUTES HOSPITAL [facility] - 4 4 [facility] OUTPATIEN INC T OFFICE 49820 [facility] ESPANA OUTPATIEN 4 4 MATTY MATTY T VISIT 15 MINUTES OFFICE 02669 [facility] FIELD AMB OUTPATIEN 4 4 T VISIT 15 MINUTES OFFICE 91234 [facility] ESPANA OUTPATIEN 4 4 MATTY MATTY T VISIT 15 MINUTES OFFICE 56043 [facility] ESP[facility] OUTPATIEN 4 4 MATTY MATTY T VISIT 25 MINUTES Emergency REJI BUENO MD (ER) 3 14:33 3 16:10 [facility] Emergency REJI Kenney MD (ER) 3 07:00 3 07:28 [facility] Emergency REJI PURVIS (ER) 3 18:56 3 20:56 [facility]
--- OUTSIDE RECORDS SUMMARY | 2017-04-15 14:52 | External Medical Summary Rpt ---
Author Author , NICK Barahona NICK Address Unknown Phone [email or web address] Care Team Providers Care Group Fitness Manager Name Role Phone A Thien CLEMENTS MD PSC, Gera Unavailable Unavailable Thien CLEMENTS MD PSC ALLRAN JR JUAN PABLO, ALLRAN Unavailable Unavailable JR JUAN PABLO ESPANA, ESPANA Unavailable Unavailable ESPANA MATTY, ESPANA Unavailable Unavailable MATTY ESPANA MATTY, ESPANA Unavailable Unavailable MATTY [facility] Unavailable Unavailable [place], [facility] [place] [facility], [facility] Unavailable Unavailable [facility], [facility] Unavailable Unavailable [facility] Unavailable Unavailable INC, [facility], Unavailable Unavailable [facility], Unavailable Unavailable [facility] MARTINEZ VAL, MARTINEZ Unavailable Unavailable VAL MARTINEZ VAL, MARTINEZ Unavailable Unavailable VAL [facility] GALAVIZ II BHARAT, Unavailable Unavailable [facility] PICKLESIMER JR ABILIO, Unavailable Unavailable PICKLESIMER JR ABILIO SCIFRES ANG, SCIFRES Unavailable Unavailable ANG SCIFRES ANG, SCIFRES Unavailable Unavailable TIGIST HENDERSON, SHAYNA Unavailable Unavailable SANTIAGO Purpose Continuity of Care Document - 11-26-2013 through 2016 Problems Code Diagnosis DOS Provider Status I10 ESSENTIAL 10-31-2016 [facility] HYPERTENSIO INC N J101 FLU D/T OTH 10-31-2016 [facility] VIRUS OTH INC RESP MANIFESTATI ONS [id number] ENCOUNTER 10-11-2016 [facility] INITIAL PHYSICIAN PRESCRIPTIO GROUP N CONTRACEPT PILLS Z7251 HIGH RISK 10-11-2016 [facility] HETEROSEXUA PHYSICIAN L BEHAVIOR GROUP 6262 EXCESSIVE 02-02-2015 [facility] OR FREQUENT PHYSICIANS GROUP MENSTRUATIO N 6264 IRREGULAR 02-02-2015 [facility] MENSTRUAL PHYSICIANS CYCLE GROUP V2541 SURVEILLANC 02-02-2015 [facility] E PREV PHYSICIANS PRESCRIBED GROUP CONTRACEPT PILL 3671 MYOPIA 01-06-2015 SCIFRES ANG 6918 OTHER 12-27-2014 Gera BATES MD PSC DERMATITIS AND RELATED CONDITIONS V255 INSERTION 09-07-2014 [facility] OF PHYSICIANS IMPLANTABLE GROUP SUBDERMAL CONTRACEPTI VE V242 ROUTINE 08-31-2014 [facility] FOLLOW-UP V7231 ROUTINE 08-31-2014 [facility] GYNECOLOGIC PHYSICIANS AL GROUP EXAMINATION 72747 FETOPELVIC 07-14-2014 [facility] DISPROPORTI PHYSICIANS ON, GROUP DELIVERED 39768 C/S DELIV 07-14-2014 [facility] W/O INDICAT PHYSICIANS DELIV W/WO GROUP ANTPRTM COND V270 OUTCOME OF 07-14-2014 [facility] DELIVERY PHYSICIANS SINGLE GROUP LIVEBORN 49666 POST TERM 07-12-2014 [facility] MATTY ANTEPARTUM COND/COMPLI CATION 89608 POOR 07-12-2014 [facility] STARR GROWTH MGMT MOTH ANTPRTM COND/COMP V220 SUPERVISION 07-05-2014 [facility] STARR OF NORMAL FIRST 00125 THREATENED 05-07-2014 [facility] LABOR INC ANTEPARTUM V283 ENCOUNTER 02-18-2014 [facility] STARR ROUTINE SCREEN MALFORMATIO N ULTRASONIC 60049 TRANSIENT 02-17-2014 [facility] N OF INC ANTEPARTUM 6921 CONTACT 01-05-2014 FIELD [facility] DERMATITIS& OTHER ECZEMA DUE OILS&GREASE S 72079 OTHER 12-03-2013 [facility] STARR SPECIFED COMPLICATIO N ANTEPARTUM 11091 PAP SMER 11-26-2013 [facility] VAL CERV W/LW GRADE SQUAMOUS INTRAEPITH LES V221 SUPERVISION 11-26-2013 [facility] VAL OF OTHER NORMAL V7242 11-26-2013 [facility] STARR EXAMINATION OR TEST POSITIVE RESULT V745 SCREENING 11-26-2013 [facility] VAL EXAMINATION FOR VENEREAL DISEASE Medications Na ND Rx Da Fi Fi [...] 10 5- 0- 0 07 MA ve SD 47 20 20 47 RT 01 17 17 09 R 3 79 PH PH AR OS MA CY 75 #5 MG 91 CA PS UL E Procedures Procedure DOS Code Location Performer Comment IAADIADOO 65081 [facility] INFLUENZA INC INC IAADIADOO 37525 [facility] STREPTOCO INC INC CCUS GROUP A HEPATITIS 08676 [facility] C [facility] [place] [address] [facility] HEPATITIS 7 [facility] B INC INC SURFACE ANTIGEN OPHTH 86969 SCIFRES SCIFRES MEDICAL 5 ANG ANG XM&EVAL COMPRHNSV ESTAB PT 1/> ETONOGEST J7307 [facility] MALORIE REL 4 PHYSICIAN MATTY CNTRACPT S GROUP IMPL SYS INCL IMPL & SPL INSJ 19134 [facility] MALORIE NON-BIODE 4 PHYSICIAN MATTY GRADABLE S GROUP DRUG DELIVERY IMPLANT URINE 05710 [facility] MALORIE 4 PHYSICIAN MATTY TEST S GROUP VISUAL COLOR CMPRSN METHS CYTP C/V 36465 [facility] PICKLESIM [facility] ER JR ABILIO LYR PREPJ SCR MNL RESCR PHYS 49141 [facility] DONATORAN JR DELIVERY 4 PHYSICIAN JUAN PABLO ONLY S GROUP ANESTHESI 51533 [facility] SHAYNA A 4 ANESTH SANTIAGO OF THE DELIVERY BLUE ONLY 40302 [facility] ESPANA DELIVERY 4 MATTY MATTY ONLY W/POSTPAR JESUSITA CARE DOPPLER 17281 [facility] VELOCIMET 4 MATTY MATTY RY UMBILICAL ARTERY 17836 [facility] ESP[facility] BIOPHYSIC 4 MATTY MATTY AL PROFILE W/O NON-STRES S TESTING US PREG 36370 [facility] ESP[facility] UTERUS 4 MATTY MATTY REAL TIME F/U TRNSABDL PER FETUS US PREG 45573 [facility] UTERUS 4 MATTY MATTY REAL TIME F/U TRNSABDL PER FETUS 72920 [facility] ESP[facility] BIOPHYSIC 4 MATTY MATTY AL PROFILE W/O NON-STRES S TESTING DOPPLER 72381 [facility] ESPANA VELOCIMET 4 MATTY MATTY RY UMBILICAL ARTERY CUL BACT 76669 COMBINED COMBINED XCPT 4 PHYSICIAN PHYSICIAN URINE S LA S LA BLOOD/STO OL AEROBIC ISOL 54874 [facility] ESPANA BIOPHYSIC 4 MATTY MATTY AL PROFILE W/O NON-STRES S TESTING DOPPLER 57877 [facility] ESPANA VELOCIMET 4 MATTY MATTY RY UMBILICAL ARTERY US PREG 54229 [facility] UTERUS 4 MATTY MATTY REAL TIME F/U TRNSABDL PER FETUS THERAPEUT 67282 [facility] IC 4 [facility] PROPHYLAC INC INC TIC/DX INJECTION SUBQ/IM 84513 [facility] ESPANA NONSTRESS 4 [place] [address] [facility] INFUSION 4 [facility] THERAPY/P INC INC ROPHYLAXI S /DX 1ST TO 1 HR URNLS DIP 85257 [facility] 4 [facility] STICK/TAB INC INC LET REAGENT AUTO MICROSCOP Y CULTURE 00240 [facility] BACTERIAL 4 [facility] II BHARAT INC QUANTTATI VE COLONY COUNT URINE GLUCOSE 76793 [facility] ESPANA TOLERANCE 4 MATTY MATTY TEST GTT 3 SPECIMENS US PREG 11805 [facility] ESPANA UTERUS 4 MATTY MATTY AFTER 1ST TRIMEST 1/ GESTATION TRANSFERA 50086 [facility] SE 4 [facility] ASPARTATE INC INC AMINO AST SGOT TRANSFERA 84217 [facility] SE 4 [facility] ALANINE INC INC AMINO ALT SGPT FIBRIN 26192 [facility] DGRADJ 4 [facility] PRODUCTS INC INC D-DIMER QUAL/SEMI ODALIS FIBRINOGE 24100 [facility] N 4 [facility] ACTIVITY INC INC PROTHROMB 29794 [facility] IN TIME 4 [facility] INC INC BLOOD 26396 [facility] COUNT 4 [facility] COMPLETE INC INC AUTO&[place] [address] [facility] BLOOD/URI 4 [facility] C ACID INC INC THROMBOPL 40540 [facility] ASTIN 4 [facility] TIME INC INC PARTIAL PLASMA/WH OLE BLOOD BASIC 42360 [facility] METABOLIC 4 [facility] PANEL INC INC CALCIUM TOTAL US PREG 11355 [facility] ESPANA UTERUS 4 MATTY MATTY REAL TIME W/IMAGE DCMTN TRANSVAG IADNA 27277 [facility] MARTINEZ NEISSERIA 4 VAL VAL GONORRHOE AE AMPLIFIED PROBE TQ CYTP 83720 MART[facility]Z MARTINEZ CERVICAL/ 4 VAL VAL VAGINAL REQ INTERP PHYSICIAN CYTP C/V 18178 M[facility]Z MARTINEZ AUTO THIN 4 VAL VAL LYR PREPJ SCR MNL RESCR PHYS URINE 06635 [facility] ESPANA 4 MATTY MATTY TEST VISUAL COLOR CMPRSN METHS IADNA 29325 [facility] MARTINEZ CHLAMYDIA 4 VAL VAL TRACHOMAT IS AMPLIFIED PROBE TQ Encounters Encounter Start End Date Code Location Performer Type Date OFFICE 24470 [facility] 7 [address] [facility] [address] [facility] 10 INC MINUTES HOSPITAL [facility] - 7 7 [facility] OUTPATIEN [facility] T OFFICE 40479 [facility] MALORIE OUTPATIEN 7 7 PHYSICIAN T VISIT GROUP 15 MINUTES HOSPITAL [facility] - 7 7 [facility] OUTPATIEN INC T OFFICE 82858 [facility] ESPANA OUTPATIEN 5 5 PHYSICIAN MATTY T VISIT S GROUP 15 MINUTES OFFICE 29129 Gera SANCHES OUTPATIEN 5 5 TYREE SEE T VISIT PSC 15 MINUTES OFFICE 66599 [facility] MALORIE OUTPATIEN 4 4 PHYSICIAN MATTY T VISIT S GROUP 25 MINUTES OFFICE 75503 [facility] MALORIE OUTPATIEN 4 4 PHYSICIAN MATTY T VISIT S GROUP 15 MINUTES OFFICE 74910 [facility] ZAVALETAE OUTPATIEN 4 4 MATTY MATTY T VISIT 15 MINUTES OFFICE 80951 [facility] OUTPATIEN 4 4 MATTY MATTY T VISIT 15 MINUTES OFFICE 08094 [facility] OUTPATIEN 4 4 MATTY MATTY T VISIT 15 MINUTES OFFICE 28373 [facility] OUTPATIEN 4 4 MATTY MATTY T VISIT 15 MINUTES HOSPITAL [facility] - 4 4 [facility] OUTPATIEN INC T OFFICE 78405 [facility] OUTPATIEN 4 4 MATTY MATTY T VISIT 15 MINUTES HOSPITAL [facility] - 4 4 [facility] OUTPATIEN INC T OFFICE 28426 [facility]IE ZAVALETAE OUTPATIEN 4 4 MATTY MATTY T VISIT 15 MINUTES OFFICE 82832 [facility] OUTPATIEN 4 4 MATTY MATTY T VISIT 15 MINUTES OFFICE 46017 [facility] OUTPATIEN 4 4 MATTY MATTY T VISIT 5 MINUTES OFFICE 89640 [facility] OUTPATIEN 4 4 MATTY MATTY T VISIT 15 MINUTES OFFICE 89633 [facility] ZAVALETAE OUTPATIEN 4 4 MATTY MATTY T VISIT 15 MINUTES OFFICE 26065 [facility] ZAVALETAE OUTPATIEN 4 4 MATTY MATTY T VISIT 15 MINUTES OFFICE 63124 [facility] ZAVALETAE OUTPATIEN 4 4 MATTY MATTY T VISIT 15 MINUTES HOSPITAL [facility] - 4 4 [facility] OUTPATIEN INC T OFFICE 38313 [facility] ZAVALETAE OUTPATIEN 4 4 MATTY MATTY T VISIT 15 MINUTES OFFICE 08088 [facility]ELD [facility] FIELD AMB OUTPATIEN 4 4 T VISIT 15 MINUTES OFFICE 72624 [facility] ZAVALETAE OUTPATIEN 4 4 MATTY MATTY T VISIT 15 MINUTES OFFICE 75897 [facility] ESPANA OUTPATIEN 4 4 MATTY MATTY T VISIT 25 MINUTES
--- OUTSIDE RECORDS SUMMARY | 2017-04-15 14:52 | External Medical Summary Rpt ---
Demographics Preferred Language Burundian Marital Status Unknown Moravian Affiliation Unknown Race Unknown Ethnic Group Unknown Author Author , NICK ROMERO Address Unknown Phone Immunization Unable to retrieve immunization data due to connection failure with Immunization Registry. Please try again later.
--- OUTSIDE RECORDS SUMMARY | 2017-04-15 14:52 | External Medical Summary Rpt ---
Author Author , NICK Barahona NICK Address Unknown Phone [email or web address] Care Team Providers Care Paper Deliverer Name Role Phone A Thien CLEMENTS MD [...] Unavailable Unavailable INC, [facility], Unavailable Unavailable [facility], Unavailable Unavailable [facility] MARTINEZ VAL, MARTINEZ Unavailable Unavailable [...] Diagnosis DOS Provider Status I10 ESSENTIAL 10-31-2016 [facility] HYPERTENSIO INC N J101 FLU D/T OTH 10-31-2016 [facility] VIRUS OTH INC RESP MANIFESTATI ONS [id number] ENCOUNTER 10-11-2016 [facility] INITIAL PHYSICIAN PRESCRIPTIO GROUP N CONTRACEPT PILLS Z7251 HIGH RISK 10-11-2016 [facility] HETEROSEXUA PHYSICIAN L BEHAVIOR GROUP 6262 EXCESSIVE 02-02-2015 [facility] OR FREQUENT PHYSICIANS GROUP MENSTRUATIO N 6264 IRREGULAR 02-02-2015 [facility] MENSTRUAL PHYSICIANS CYCLE GROUP V2541 SURVEILLANC 02-02-2015 [facility] E PREV PHYSICIANS PRESCRIBED GROUP CONTRACEPT PILL 3671 MYOPIA 01-06-2015 [facility] AN[facility] 6918 OTHER 12-27-2014 Gera BATES MD PSC DERMATITIS AND RELATED CONDITIONS V255 INSERTION 09-07-2014 [facility] OF PHYSICIANS IMPLANTABLE GROUP SUBDERMAL CONTRACEPTI VE V242 ROUTINE 08-31-2014 [facility] FOLLOW-UP V7231 ROUTINE 08-31-2014 [facility] GYNECOLOGIC PHYSICIANS AL GROUP EXAMINATION 96663 FETOPELVIC 07-14-2014 [facility] DISPROPORTI PHYSICIANS ON, GROUP DELIVERED 31503 C/S DELIV 07-14-2014 [facility] W/O INDICAT PHYSICIANS DELIV W/WO GROUP ANTPRTM COND V270 OUTCOME OF 07-14-2014 [facility] DELIVERY PHYSICIANS SINGLE GROUP LIVEBORN 55956 POST TERM 07-12-2014 [facility] ANTEPARTUM COND/COMPLI CATION 17775 POOR 07-12-2014 [facility] ST[facility] GROWTH MGMT MOTH ANTPRTM COND/COMP V220 SUPERVISION 07-05-2014 [facility] STARR OF NORMAL FIRST 67236 THREATENED 05-07-2014 [facility] ANTEPARTUM V283 ENCOUNTER 02-18-2014 [facility] ST[facility] ROUTINE SCREEN MALFORMATIO N ULTRASONIC 65114 TRANSIENT 02-17-2014 [facility] N OF INC ANTEPARTUM 6921 CONTACT 01-05-2014 [facility] DERMATITIS& OTHER ECZEMA DUE OILS&GREASE S 53286 OTHER 12-03-2013 [facility] STARR SPECIFED COMPLICATIO N ANTEPARTUM 52742 PAP SMER 11-26-2013 MARTINEZ VAL CERV W/LW [...] 10 5- 0- 0 07 MA ve WA 47 20 20 47 RT 01 17 17 09 R 3 79 PH PH AR OS MA CY 75 #5 MG 91 CA PS UL E Procedures Procedure DOS Code Location Performer Comment IAADIADOO 73476 [facility] INFLUENZA INC INC IAADIADOO 50567 [facility] STREPTOCO INC INC CCUS GROUP A HEPATITIS 04147 [facility] C [facility] [place] [address] [facility] HEPATITIS [facility] B INC INC SURFACE ANTIGEN OPHTH 07196 SCIFRES SCIFRES MEDICAL 5 ANG ANG XM&EVAL COMPRHNSV ESTAB PT 1/> ETONOGEST J7307 [facility] MALORIE REL 4 PHYSICIAN MATTY CNTRACPT S GROUP IMPL SYS INCL IMPL & SPL INSJ 03510 [facility] MALORIE NON-BIODE 4 PHYSICIAN MATTY GRADABLE S GROUP DRUG DELIVERY IMPLANT URINE 97177 [facility] MALORIE 4 PHYSICIAN MATTY TEST S GROUP VISUAL COLOR CMPRSN METHS CYTP C/V 23118 [facility] ER JR ABILIO LYR PREPJ SCR MNL RESCR PHYS 23552 [facility] DONATORAN JR DELIVERY 4 PHYSICIAN JUAN PABLO ONLY S GROUP ANESTHESI 27897 [facility] A 4 ANESTH SANTIAGO OF THE DELIVERY BLUE ONLY 85678 [facility] ESPANA DELIVERY 4 MATTY MATTY ONLY W/POSTPAR JESUSITA CARE DOPPLER 63595 [facility] VELOCIMET 4 MATTY MATTY RY UMBILICAL ARTERY 12006 [facility] BIOPHYSIC 4 MATTY MATTY AL PROFILE W/O NON-STRES S TESTING US PREG 15335 [facility] UTERUS 4 MATTY MATTY REAL TIME F/U TRNSABDL PER FETUS US PREG 25360 [facility] UTERUS 4 MATTY MATTY REAL TIME F/U TRNSABDL PER FETUS 93605 [facility] BIOPHYSIC 4 MATTY MATTY AL PROFILE W/O NON-STRES S TESTING DOPPLER 39991 [facility] VELOCIMET 4 MATTY MATTY RY UMBILICAL ARTERY CUL BACT 98731 COMBINED COMBINED XCPT 4 PHYSICIAN PHYSICIAN URINE S LA S LA BLOOD/STO OL AEROBIC ISOL 38075 [facility] ESPANA BIOPHYSIC 4 MATTY MATTY AL PROFILE W/O NON-STRES S TESTING DOPPLER 68477 [facility] ESPANA VELOCIMET 4 MATTY AMTTY RY UMBILICAL ARTERY US PREG 72817 [facility] UTERUS 4 MATTY MATTY REAL TIME F/U TRNSABDL PER FETUS THERAPEUT 78678 [facility] IC [facility] PROPHYLAC INC INC TIC/DX INJECTION SUBQ/IM 30744 [facility] ESP[facility] NONSTRESS 4 [place] [address] [facility] INFUSION 4 [facility] THERAPY/P INC INC ROPHYLAXI S /DX 1ST TO 1 HR URNLS DIP 67287 [facility] 4 [facility] STICK/TAB INC INC LET REAGENT AUTO MICROSCOP Y CULTURE 62022 [facility] GALAVIZ BACTERIAL 4 [facility] II BHARAT INC QUANTTATI VE COLONY COUNT URINE GLUCOSE 82324 [facility] TOLERANCE 4 MATTY MATTY TEST GTT 3 SPE[place]IMENS US PREG 41793 [facility] UTERUS 4 MATTY MATTY AFTER 1ST TRIMEST 1/ GESTATION TRANSFERA 43565 [facility] SE [facility] ASPARTATE INC INC AMINO AST SGOT TRANSFERA 77218 [facility] SE 4 [facility] ALANINE INC INC AMINO ALT SGPT FIBRIN 49225 [facility] DGRADJ 4 [facility] PRODUCTS INC INC D-DIMER QUAL/SEMI ODALIS FIBRINOGE 75537 [facility] N 4 [facility] ACTIVITY INC INC PROTHROMB 38726 [facility] IN TIME 4 [facility] INC INC BLOOD 83625 [facility] COUNT 4 [facility] COMPLETE INC INC AUTO&[place] [address] [facility] BLOOD/URI 4 [facility] C ACID INC INC THROMBOPL 41891 [facility] ASTIN 4 [facility] TIME INC INC PARTIAL PLASMA/WH OLE BLOOD BASIC 05079 [facility] METABOLIC 4 [facility] PANEL INC INC CALCIUM TOTAL US PREG 40668 [facility] ESP[facility] UTERUS 4 MATTY MATTY REAL TIME W/IMAGE DCMTN TRANSVAG IADNA 73700 MART[facility]Z MARTINEZ NEISSERIA 4 VAL VAL GONORRHOE AE AMPLIFIED PROBE TQ CYTP 79555 [facility] MARTINEZ CERVICAL/ 4 VAL VAL VAGINAL REQ INTERP PHYSICIAN CYTP C/V 63788 MARTINEZ MARTINEZ AUTO THIN 4 VAL VAL LYR PREPJ SCR MNL RESCR PHYS URINE 03362 [facility] ESPANA 4 MATTY MATTY TEST VISUAL COLOR CMPRSN METHS IADNA 97043 MARTINEZ MARTINEZ CHLAMYDIA 4 VAL VAL TRACHOMAT IS AMPLIFIED PROBE TQ Encounters Encounter Start End Date Code Location Performer Type Date OFFICE 17286 [facility] 7 7 [facility] 10 INC MINUTES [facility]OSP[facility] - 7 7 [facility] T OFFICE 00969 [facility] MAL[facility]IE OUTPATIEN 7 7 PHYSICIAN T VISIT GROUP 15 MINUTES [facility] - 7 7 [facility] OUTPATIEN INC T OFFICE 03592 [facility] ESPANA OUTPATIEN 5 5 PHYSICIAN MATTY T VISIT S GROUP 15 MINUTES OFFICE 06209 [facility] SANCHES OUTPATIEN 5 5 [place] T VISIT PSC 15 MINUTES OFFICE 11481 [facility] MALORIE OUTPATIEN 4 4 PHYSICIAN MATTY T VISIT S GROUP 25 MINUTES OFFICE 12580 [facility] MALORIE OUTPATIEN 4 4 PHYSICIAN MATTY T VISIT S GROUP 15 MINUTES OFFICE 24162 [facility] ZAVALETAE OUTPATIEN 4 4 MATTY MATTY T VISIT 15 MINUTES OFFICE 22783 [facility] ESPANA OUTPATIEN 4 4 MATTY MATTY T VISIT 15 MINUTES OFFICE 30130 [facility] ESPANA OUTPATIEN 4 4 MATTY MATTY T VISIT 15 MINUTES OFFICE 43037 [facility] ESPANA OUTPATIEN 4 4 MATTY MATTY T VISIT 15 MINUTES [facility]OSP[facility] - 4 4 [facility] OUTPATIEN INC T OFFICE 17706 [facility] ESPANA OUTPATIEN 4 4 MATTY MATTY T VISIT 15 MINUTES HOSPITAL [facility] - 4 4 [facility] OUTPATIEN INC T OFFICE 59508 MAL[facility] ZAVALETAE OUTPATIEN 4 4 MATTY MATTY T VISIT 15 MINUTES OFFICE 88507 [facility] ESPANA OUTPATIEN 4 4 MATTY MATTY T VISIT 15 MINUTES OFFICE 55175 [facility] ESPANA OUTPATIEN 4 4 MATTY MATTY T VISIT 5 MINUTES OFFICE 28193 [facility] ESPANA OUTPATIEN 4 4 MATTY MATTY T VISIT 15 MINUTES OFFICE 89005 [facility] ZAVALETAE OUTPATIEN 4 4 MATTY MATTY T VISIT 15 MINUTES OFFICE 23405 [facility] ZAVALETAE OUTPATIEN 4 4 MATTY MATTY T VISIT 15 MINUTES OFFICE 76943 [facility] ZAVALETAE OUTPATIEN 4 4 MATTY MATTY T VISIT 15 MINUTES [facility]OSPITAL [facility] - 4 4 [facility] OUTPATIEN INC T OFFICE 61693 MAL[facility] ZAVALETAE OUTPATIEN 4 4 MATTY MATTY T VISIT 15 MINUTES OFFICE 61700 [facility]ELD AMB OUTPATIEN 4 4 T VISIT 15 MINUTES OFFICE 75724 [facility]IE ZAVALETAE OUTPATIEN 4 4 MATTY MATTY T VISIT 15 MINUTES OFFICE 92975 [facility] ESPANA OUTPATIEN 4 4 MATTY MATTY T VISIT 25 MINUTES
--- OUTSIDE RECORDS SUMMARY | 2017-04-15 14:52 | External Medical Summary Rpt ---
Demographics Preferred Language Sierra Leonean Marital Status Unknown Shinto Affiliation Unknown Race Unknown Ethnic Group Unknown Author Author , NICK ROMERO Address Unknown Phone Immunization Unable to retrieve immunization data due to connection failure with Immunization Registry. Please try again later.
--- OUTSIDE RECORDS SUMMARY | 2017-04-15 14:53 | External Medical Summary Rpt ---
Author Author NICK Thornton, [employer] Organization [employer] Address Unknown Phone Unavailable Results HBsAg Screen Observa Value Referen Units Interpr Notes Date tion ce etation Range Hepatit Negativ Negativ No No Perform Apr 10 is B e e informa informa ed at: 2017 virus tion in tion in CB - 12:06 surface source source [facility] PM Ag data data [Presen [place]6 ce] in 370 Serum [facility] [id number] 69Lab Directo r: Jarvis sanchez PhD, Phone: [phone] Reagin Ab [Titer] in Serum by RPR Observa Value Referen Units Interpr Notes Date ti ce etation Range Reagin Ab NonRea<1: No No Performed Apr 10 [Titer] 1 informati informati at: CB 2017 in Serum on in on in - [facility] 12:06 PM by RPR source source data data [id number] [place], [place] [id number] [employer] Repairer: Jarvis Feldman PhD, Phone: [phone] Rubella virus IgG Ab [Units/volume] in Serum by Immunoassay Observa Value Referen Units Interpr Notes Date ti ce etation Range Rubella Immune index No Non-immun Apr 10 virus IgG >0.99 informati e 2017 Ab on in <0.90Equi 12:06 PM [Units/vo source vocal lume] in data 0.90 - Serum by 0.99Immun Immunoass e ay >0.99 Blood group antibody screen [Presence] in Serum or Plasma Observa Value Referen Units Interpr Notes Date ti ce etation Range Blood NEGATIV NEGATIV No No No Apr 10 group E E informa informa informa 2017 antibod tion in tion in tion in 12:06 y source source source PM screen data data data [Presen ce] in Serum or Plasma Rh [Type] in Blood Observa Value Referen Units Interpr Notes Date tion ce etation Range Rh POSITIV No No No No Apr 10 [Type] E informa informa informa informa 2017 in tion in tion in tion in tion in 12:06 Blood source source source source PM data data data data ABO group [Type] in Blood Observa Value Referen Units Interpr Notes Date ce etation Range ABO O No No No No Apr 10 group informa informa informa informa 2016 [Type] tion in tion in tion in tion in 12:06 in source source source source PM Blood data data data data CBC W Auto Differential panel in Blood Observa Value Referen Units Interpr Notes Date ce etation Range Basophils 0 - 0.2 K/MM3 Normal No Apr 102016 [#/volume on in 12:06 PM ] in source Blood by data Automated count Basophils 0.1 - 2.0 % Normal No Apr 10 / inform2016 leukocyte on in 12:06 PM s in source Blood by data Automated count Eosinophi 0.0 - 0.4 K/mm3 Normal No Apr 10 ls ati 2016 [#/volume on in 12:06 PM ] in source Blood by data Automated count Eosinophi 0.1 - % Normal No Apr 10 ls/100 12.0 inform2016 leukocyte on in 12:06 PM s in source Blood by data Automated count Granulocy 1.8 - 7.8 K/mm3 Normal No Apr 10 isaias 2016 [#/volume on in 12:06 PM ] in source Blood by data Automated count Granulocy 37.0 - % Normal No Apr 10 isaias/100 80.0 ati 2016 leukocyte on in 12:06 PM s in source Blood by data Automated count Hematocri 37.0 - % Normal No Apr 10 t [Volume 47.0 ati 2016 on in 12:06 PM Fraction] source of Blood data Hemoglobi 12.2 - g/dL No No Apr 10 n 16.2 informati informati 2016 [Mass/vol on in on in 12:06 PM ume] in source source Blood data data Lymphocyt 0.7 - 4.5 K/mm3 Normal No Apr 10 es inform2016 [#/volume on in 12:06 PM ] in source Unspecifi data ed specimen by Automated count Lymphocyt 10 - 50.0 % Normal No Apr 10 es informati 2016 [#/volume on in 12:06 PM ] in source Unspecifi data ed specimen by Automated count Erythrocy 27 - 31.2 pg High No Apr 10 te mean 2016 corpuscul on in 12:06 PM ar source hemoglobi data n [Entitic mass] Erythrocy 31.8 - g/dl Normal No Apr 10 te mean 35.4 2016 corpuscul on in 12:06 PM ar source hemoglobi data n concentra tion [Mass/vol ume] by Automated count Erythrocy 82.2 - fl Normal No Apr 10 te mean 97.8 inform2016 corpuscul on in 12:06 PM ar volume source [Entitic data volume] by Automated count Monocytes 0.1 - 1.0 K/mm3 Normal No Apr 10 informati 2016 [#/volume on in 12:06 PM ] in source Blood by data Automated count Monocytes 1.7 - 9.3 % Normal No Apr 10 /100 2016 leukocyte on in 12:06 PM s in source Blood by data Automated count Platelet 7.4 - fl Low No Apr 10 mean 10.4 inform2016 volume on in 12:06 PM [Entitic source volume] data in Blood by Automated count Platelets 142 - 424 K/mm3 Normal No Apr 10 informati 2016 [#/volume on in 12:06 PM ] in source Blood data Erythrocy 4.2 - 5.4 M/mm3 Normal No Apr 10 isaias informati 2016 [#/volume on in 12:06 PM ] in source Amniotic data fluid Erythrocy 11.5 - % Normal No Apr 10 te 17.5 informati 2016 distribut on in 12:06 PM ion width source [Entitic data volume] by Automated count Leukocyte 4.8 - K/MM3 Normal No Apr 10 s 10.8 informati 2016 [#/volume on in 12:06 PM ] in source Blood data
--- OUTSIDE RECORDS SUMMARY | 2017-04-15 14:53 | External Medical Summary Rpt ---
[...] data [Presen [place]6 ce] in 370 Serum [facility] [id number] 69Lab Directo r: Jarvis sanchez PhD, Phone: [phone] Reagin Ab [Titer] in Serum by RPR Observa Value Referen Units Interpr Notes Date ti ce etation Range Reagin Ab NonRea<1: No No Performed Apr 10 [Titer] 1 informati informati at: CB 2017 in Serum on in on in - [facility] 12:06 PM by RPR source source data data [id number] [place], [place] [id number] Electrical Test Engineer: Jarvis Feldman PhD, Phone: [phone] Rubella virus IgG Ab [Units/volume] in [...]
[2017-04-15 15:45] VITALS: BP 102/60
--- NOTE | 2017-04-15 15:47 | RADIOLOGY REPORT PS360 ---
US TRANSVAGINAL PREG Ordering Physician: Alberta Lara MD Patient Age: 26 years: Female HISTORY: 7 WEEKS WITH CRAMPING AND BLEEDING1 day early with bleeding TECHNIQUE: Transvaginal pelvic ultrasound bh FINDINGS Small early intrauterine gestational sac identified. Mean sac size 0.57 = ~ estimated 4 weeks 6 days gestation = nearly 5 weeks Yolk sac is identified measuring 1.9 mm. No pole evident as of yet Left ovary: 2.7 cm x 1.9 cm x 2.5 cm . Scattered tiny follicles Right ovary.: 2.5 cm x 2.5 cm x 2.3 cm. It contains a 1.35 x 1.3 cm cyst possible corpus luteum cyst.. Little is if any color Doppler flow to this cyst.. Other smaller follicular cyst right ovary also noted Good flow to both ovaries no fluid in cul-de-sac IMPRESSION: Early intrauterine gestation. Mean sac size 5.7 mm = ~ 4 weeks 6 days Yolk sac seen. pole not yet evident Ovaries appear normal in size. No fluid in cul-de-sac 1.35 cm cyst at right ovary--. Possible corpus luteum cyst.
[2017-04-16 18:36] LABS: Neisseria gonorrhoeae, NAA Negative (Negative)
== END 2017-04-15 15:52 | disposition home or self-care (01) ==
LOC: ER 13:37
PROVIDERS: Emergency Medicine
DX: O46.91 Antepartum hemorrhage, unspecified, first trimester (principal); I10 Essential (primary) hypertension; Z72.0 Tobacco use

== ENCOUNTER 2017-06-23 11:53 | Emergency (ER) | payer MEDICAID ==
[~2017-06-23] VITALS: Ht 149.9 cm; Wt 52.2 kg
--- NOTE | 2017-06-23 12:46 | Urgent Treatment Center Report ---
History of Present Issue Date/Time Seen by Provider 06/23/17 1243 Visit Reason Pt arrived:Walked Presenting Problem:PT C/O SORE THROAT AND JOHN X3 DAYS Location if Accident: Onset of symptoms date/time:/ or onset unknown for:MEDICAL HX UNKNOWN Have you (or family members/close friends) recently traveled outside the [place]? N If Yes, where/when: Have you had exposure to infectious disease within the past month? TB? Other? Specify: Pateint state that she has not been feeling well for several days now. State that she has had sorethroat Sinus pain and drainage and cough. State that she has continued to get worse. State that she is feeling pressure under her eyes from her sinuses and state that she recently noticed that she had a color change in her mucous and now it has went from yellow to a yellowish green color ALLERGIES Coded Allergies: Penicillins (04/16/17) Sulfa (Sulfonamide Antibiotics) (04/16/17) Uncoded Allergies: CODIENE (08/16/15) Home Medications Reported Medications No Known Home Medications History Medical History General CAD? No Angina: No NH: No Hypertension? Yes Hyperlipidemia? No CHF? No DVT? No PE? No COPD? No Asthma? No Anemia? No GERD? No Gastric ulcers? No GI Bleed? No Hernia? No Thyroid Problems? No Hypothyroidism? No CVA? No Seizures? No Diabetes? No Renal Insuffiency? No UTI? No Stones? No BPH? No GB Disease: No Nephritic Syndrome? No Asplenia? No Hepatitis? No Sickle Cell Disease? No Arthritis? No Migraines? No Cataracts? No Glaucoma? No MRSA? No HIV? No TB? No Anxiety? No Depression? No Cancer? No More? 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 denies: ear pain. Respiratory cough, denies shortness of breath, denies wheezing Cardiovascular denies chest pain, denies syncope Gastrointestinal denies diarrhea, denies nausea, denies vomiting Physical Exam Vital Signs Vital Signs Date Time Temp Pulse Resp B/P Pulse O2 O2 Flow FiO2 Ox Delivery Rate 06/232 98.3 86 22 95/62 100 General Appearance normal appearance, WD/WN, no apparent distress Ear, Nose, Throat sinus pain/drainage, nasal congestion, Throat red, irritated drainage noted tenderness noted frontal sinsuse and bilateral turbinates red reports drainage as being greenish yellow in color Respiratory Status Yes: trachea midline, chest symmetrical. No: respiratory distress. Cardiovascular normal exam, regular rate/rhythm Neurologic alert Medical Decision Making LABS/Meds/Orders Pt receiving controlled substance in ED? No Results/Orders Laboratory Tests 06/23/17 1220: Group A Strep Screen NOT DETECTED Orders Procedure Date/time Status [facility] STREP SCREEN 06/23 1224 Complete Departure Departure Time of Disposition 1252 Disposition DC Home or Self Care(routine) Clinical Impression Primary Impression: Sinusitis Qualifiers: Sinusitis location: frontal Chronicity: unspecified Qualified Code: J32.1 - Chronic frontal sinusitis Condition STABLE Referrals Eyal ESE,Chaz (Family): 3 Days-Call Office if no improvement or worsening of symptoms Patient Instructions DI for Sinusitis, Sinus Headache, Sinusitis Additional Instructions * Monitor Temp. Tylenol and/or Ibuprofen as needed. ER if fever is no less than 101 despite alternating Tylenol and Ibuprofen * Encourage fluids, water, Gatorade, powerade, pedialyte if infant/toddler/or child * Warm salt water gargles for throat irritation *Warm fluids *Sore throat lozenges *Sleep elevated *humidifier or vaporizer *Flonase 2 sprays each nostril daily but may take 2-3 days to notice improvement with it *Bromfed may cause drowsiness. Know how it effect you or your child. Before driving, caring for small children or sending your child to school Follow up IMMEDIATELY for new or worsening of symptoms OR no noticeable improvement over the next 48-72 hours. 911 immediately for any life threatening symptoms such as chest pain or difficulty breathing Discharge Counseling Counseled pt/family regarding diagnosis, medications/RX, home care, follow up needs Prescriptions Current Visit Scripts Azithromycin (Zithromycin (Z-MAT) 250MG Tab) 250 MG PO DAILY #6 TAB TAKE TWO (2) TABLETS ON DAY 1, THEN ONE (1) TABLET DAY #2 THRU #5 D-METHORPHAN HB/P-EPD HCL/BPM (Bromfed Dm Cough Syrup) 10 ML PO Q4HP PRN cough #120 SYR Methylprednisolone (Medrol Dose Mat) 4 MG PO UD #1 MAT TAKE DIRECTED ON PACKAGING Fluticasone Propionate (Flonase 50 Mcg Nasal [place]) 2 SPRAY NA DAILY #1 BOT at 1254
[2017-06-23] MEDS ORDERED: BROMFED DM COU118 ML PO (12:54)
[2017-06-23] MEDS ORDERED: ZITHROMAX Z PA250 MG PO (12:54)
[2017-06-23] MEDS ORDERED: MEDROL 4MG. DOSE4 MG PO (12:54)
[2017-06-23] MEDS ORDERED: FLONASE 50 MCG16 GM (12:54)
[2017-06-23 13:00] VITALS: BP 95/62
--- OUTSIDE RECORDS SUMMARY | 2017-06-28 18:35 | External Medical Summary Rpt | CCD ---
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 Helper Name Role Phone A Thien CLEMENTS MD PSC, A Unavailable Unavailable Thien CLEMENTS MD PSC ALLADEN REDDY CHA, JUVE Unavailable Unavailable JR JUAN PABLO BUENO MD, Unavailable Unavailable MALORIE BARBOZA MD Unavailable Unavailable ESPANA MATTY, ESPANA Unavailable Unavailable MATTY MALORIE MATTY, ESPANA Unavailable Unavailable MATTY [facility] Unavailable Unavailable [place], [facility], [facility] Unavailable Unavailable [facility], [facility] Unavailable Unavailable [facility] Un[facility] Un[facility], [facility], Unavailable Unavailable [facility], Unavailable Unavailable [facility] NIELSEN, NIELSEN Unavailable Unavailable KILPELA, KILPELA Unavailable Unavailable DEVONTE WELLS, Unavailable Unavailable DEVONTE PURVIS MARTINEZ VAL, MARTINEZ Unavailable Unavailable VAL MARTINEZ VAL, MARTINEZ Unavailable Unavailable VAL Sebastian Kenney MD, Unavailable Unavailable CORINNE Sprague MD Unavailable Unavailable [facility], [facility] GALAVIZ II BHARAT, Unavailable Unavailable [facility] PICKLESIMER JR ABILIO, Unavailable Unavailable PICKLESIMER JR ABILIO SCIFRES ANG, SCIFRES Unavailable Unavailable ANG SCIFRES ANG, SCIFRES Unavailable Unavailable TIGIST HENDERSON, SHAYNA Unavailable Unavailable SANTIAGO Purpose Continuity of Care Document - 11-04-2012 through 2016 Problems Code Diagnosis DOS Provider Status O034 INCOMPLETE 04-16-2017 [facility] W/O COMPLICATIO N I10 ESSENTIAL 04-15-2017 [facility] HYPERTENSIO INC N O4691 ANTEPARTUM 04-15-2017 [facility]EMORRHAGE [facility] UNS FIRST PLLC TRIMESTER Z3A01 LESS THAN 8 04-15-2017 [facility]ATYANA [facility] GESTATION PLLC OF Z720 TOBACCO USE 04-15-2017 [facility] Z3201 ENCOUNTER 04-10-2017 [facility] FOR [facility]IAN GROUP TEST RESULT POSITIVE D500 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 A Thien CLEMENTS DEFICIENCY PSC ANEMIA SEC TO BLOOD LOSS CHRONIC R1030 LOWER 04-01-2017 A Thien CLEMENTS ABDOMINAL PSC PAIN UNSPECIFIED R197 DIARRHEA 04-01-2017 A Thien CLEMENTS UNSPECIFIED PSC R5383 OTHER 04-01-2017 A Thien CLEMENTS FATIGUE PSC R634 ABNORMAL 04-01-2017 A Thien CLEMENTS WEIGHT LOSS PSC T148 OTHER 04-01-2017 A Thien CLEMENTS INJURY OF PSC UNSPECIFIED BODY REGION K582 MIXED 03-22-2017 A Thien CLEMENTS IRRITABLE PSC BOWEL SYNDROME J101 FLU D/T OTH 10-31-2016 [facility] ID [facility]U [facility] VIRUS OTH INC RESP MANIFESTATI ONS H6123 IMPACTED 10-30-2016 A Thien PETEUMERasheed SEE PSC BILATERAL J209 ACUTE 10-30-2016 A Thien CLEMENTS BRONCHITIS PSC UNSPECIFIED C02695 ENCOUNTER 10-11-2016 [facility] INITIAL PHYSICIAN PRESCRIPTIO GROUP N CONTRACEPT PILLS Z7251 HIGH RISK 10-11-2016 [facility] HETEROSEXUA PHYSICIAN L BEHAVIOR GROUP 6262 EXCESSIVE 02-02-2015 [facility] OR FREQUENT PHYSICIANS GROUP MENSTRUATIO N 6264 IRREGULAR 02-02-2015 [facility] MENSTRUAL PHYSICIANS CYCLE GROUP V2541 SURVEILLANC 02-02-2015 [facility] E PREV PHYSICIANS PRESCRIBED GROUP CONTRACEPT PILL 3671 MYOPIA 01-06-2015 SCIFRES ANG 6918 OTHER 12-27-2014 A Thien CLEMENTS ATOPIC PSC DERMATITIS AND RELATED CONDITIONS V255 INSERTION 09-07-2014 [facility] OF PHYSICIANS IMPLANTABLE GROUP SUBDERMAL CONTRACEPTI VE V242 ROUTINE 08-31-2014 [facility] FOLLOW-UP V7231 ROUTINE 08-31-2014 [facility] GYNECOLOGIC PHYSICIANS AL GROUP EXAMINATION 26830 FETOPELVIC 07-14-2014 [facility] DISPROPORTI PHYSICIANS ON, GROUP DELIVERED 84545 C/S DELIV 07-14-2014 [facility] W/O INDICAT PHYSICIANS DELIV W/WO GROUP ANTPRTM COND V270 OUTCOME OF 07-14-2014 [facility] DELIVERY PHYSICIANS SINGLE GROUP LIVEBORN 28145 POST TERM 07-12-2014 ESPANA MATTY ANTEPARTUM COND/COMPLI CATION 47754 POOR 07-12-2014 MALORIE MATTY GROWTH MGMT MOTH ANTPRTM COND/COMP V220 SUPERVISION 07-05-2014 MALORIE STARR OF NORMAL FIRST 80939 THREATENED 05-07-2014 [facility] ANTEPARTUM V283 ENCOUNTER 02-18-2014 MALORIE STARR ROUTINE SCREEN MALFORMATIO N ULTRASONIC 71282 TRANSIENT 02-17-2014 [facility] N OF INC ANTEPARTUM 6921 CONTACT 01-05-2014 [facility]ELD [facility] DERMATITIS& OTHER ECZEMA DUE OILS&GREASE S 78047 OTHER 12-03-2013 MALORIE MATTY SPECIFED COMPLICATIO N ANTEPARTUM 57095 PAP SMER 11-26-2013 MARTINEZ VAL CERV W/LW GRADE SQUAMOUS INTRAEPITH LES V221 SUPERVISION 11-26-2013 MARTINEZ VAL OF OTHER NORMAL V7242 11-26-2013 MALORIE STARR EXAMINATION OR TEST POSITIVE RESULT V745 SCREENING 11-26-2013 MARTINEZ VAL EXAMINATION FOR VENEREAL DISEASE 616.4 616.4 09-10-2013 Marni ABSCESS OF [facility] VULVA [facility] 305.1 305.1 04-08-2013 [place] TOBACCO USE [facility] 848.3 848.3 04-08-2013 Marni SPRAIN OF [facility] E000.0 E000.0 04-08-2013 [place] CIVILIAN [facility] DONE FOR INCOME OR PAY E927.0 E927.0 04-08-2013 [place] OVEREXERTIO [facility] FROM [facility] SUDDEN STRENUOUS MOVEMENT V14.5 V14.5 04-08-2013 [place] HX-NARCOTIC [facility] V14.8 V14.8 04-08-2013 [place] HX-DRUG [facility] ALLERGY [facility] 276.51 276.51 11-04-2012 [place] DEHYDRATION [facility] 599.0 599.0 URIN 11-04-2012 [place] TRACT [facility] INFECTION Hospital NOS TIQ8545 O03.9 COMPLETE OR UNSP SPONTANEOUS WITHOUT COMPLICATIO N O46.90 ANTEPARTUM HEMORRHAGE, UNSPECIFIED , UNSPECIFIED TRIMESTER Allergies, Adverse Reactions, Alerts Type Drug Allergy [...] 10 5- 0- 0 07 MA ve AL 47 20 20 47 RT 01 17 [...] Order Detail nces retati t Range on Choriogonadotropin.beta subunit ( test) [Presence] in Serum or Plasma (04-16-2017 08:42) Choriog 5131.7 complet onadotr 017 ed opin.be 08:42 ta subunit (pregna ncy test) [Presen ce] in Serum or Plasma Choriogonadotropin.beta subunit ( test) [Presence] in Serum or Plasma (04-15-2017 14:20) Choriog 5141.9 complet onadotr 017 ed opin.be 14:20 ta subunit (pregna ncy test) [Presen ce] in Serum or Plasma Blood group antibody screen [Presence] in Serum [...] SerPl-m 013 mg/dL ed Cnc 19:40 ESTIMAT 70 50-200 complet ED 013 ML/MIN ed [...] 013 mg/dL ed SerPl-m 19:40 Cnc AST 41 U/L 15-37 complet SerPl-c 013 ed Cnc 19:40 ALT 69 U/L 30-65 complet SerPl-c 013 ed Cnc 19:40 ALP 142 U/L 50-136 complet SerPl-c 013 ed Cnc 19:40 CBC with AUTO DIFF (11-04-2012 19:40) WBC # 19-2 11.7 4.8-10. complet Bld 013 K/MM3 8 ed Auto 19:40 RBC # 11-04-2 5.42 4.2-5.4 complet Bld 013 M/mm3 ed Auto 19:40 Hgb 11-04-2 16.4 12.2-16 complet Bld-mCn 013 g/dL .2 ed c 19:40 Hct Fr 02-19-2 51.3 % 37.0-47 complet Bld 013 .0 ed 19:40 MCV RBC 11-04-2 94.6 fl 82.2-97 complet 013 .8 ed 19:40 MCH RBC 11-04-2 30.2 pg 27-31.2 complet Qn 013 ed Auto 19:40 MEAN 2 31.9 31.8-35 complet CORPUSC 013 g/dl .4 ed ULAR 19:40 HGB CONC RDW RBC 11-04-2 12.4 % 11.5-17 complet Auto 013 .5 ed 19:40 Platele 11-04-2 255 142-424 complet t Bld 013 K/mm3 ed Ql 19:40 Manual MEAN 7.5 fl 7.4-10. complet PLATELE 013 4 ed T 19:40 VOLUME Granulo 11-04-2 84.0 % 37.0-80 complet cytes 013 .0 ed Fr Bld 19:40 Auto LYMPH % 11-04-2 10.5 % 10-50.0 complet 013 ed 19:40 Monocyt 11-04-2 4.5 % 1.7-9.3 complet es Fr 013 ed Bld 19:40 Auto Eosinop -19-2 0.8 % 0.1-12. complet hil Fr 013 0 ed Bld 19:40 Auto Basophi -19-2 0.1 % 0.1-2.0 complet ls Fr 013 ed Bld 19:40 Auto Granulo -19-2 9.9 1.8-7.8 complet cytes # 013 K/mm3 ed Bld 19:40 Auto Lymphoc -19-2 1.2 0.7-4.5 complet ytes Fr 013 K/mm3 ed Bld 19:40 Auto Monocyt 02-19-2 0.5 0.1-1.0 complet es # 013 K/mm3 ed Bld 19:40 Auto Eosinop -19-2 0.1 0.0-0.4 complet hil # 013 K/mm3 ed Bld 19:40 Auto Basophi 02-19-2 0.0 0-0.2 complet ls # 013 K/MM3 ed Bld 19:40 Auto B-HCG Ur Ql (11-04-2012 19:35) B-HCG 11-04-2 NEGATIV NEG complet Ur Ql 013 E ed 19:35 URINALYSIS/COMPLETE (11-04-2012 19:35) URINE 11-04- YELLOW YELLOW complet COLOR 013 ed 19:35 URINE 11-04-2 Sl CLEAR complet APPEARA 013 Cloudy ed [...] Procedures Procedure DOS Code Location Performer Comment US PREG 71110 [facility] REAL TIME [place] W/[place] [address] [facility] INCOMPLET 7 [facility] E INC INC ANY TRIMESTER SURGICAL GONADOTRO 58309 [facility] PIN [facility] CHORIONIC INC INC QUANTITAT LINDSEY COMPREHEN 53814 [facility] SIVE 7 [facility] METABOLIC INC INC PANEL BLOOD 62071 [facility] COUNT 7 [facility] COMPLETE INC INC AUTO&AUTO DIFRNTL WBC URNLS DIP 86105 [facility] STICK/TAB INC INC LET REAGENT AUTO MICROSCOP Y BLOOD 96518 [facility] COUNT 7 [facility] COMPLETE INC INC AUTO&[place] [address] [facility] INFUSION 7 [facility] THERAPY/P INC INC ROPHYLAXI S /DX 1ST TO 1 HR TISS CARLYN 57704 [facility] SLIDE [facility] SAMPS INC INC SKN/HR/NL S FNGI/ECTO PARASIT SMR PRIM 19795 [facility] SRC WET 7 [facility] MOUNT INC INC NFCT AGT URINE 97291 [facility] 7 [facility] TEST INC INC VISUAL COLOR CMPRSN METHS US PREG 71771 [facility] UTERUS 7 [facility] REAL TIME INC INC W/IMAGE DCMTN TRANSVAG GONADOTRO 24150 [facility] PIN 7 [facility] CHORIONIC INC INC QUANTITAT LINDSEY URINE 38404 [facility] MALORIE 7 PHYSICIAN TEST GROUP VISUAL COLOR CMPRSN METHS DRUG TEST 15735 [facility] PRSMV 7 PHYSICIAN QUAL DIR GROUP OPTICAL OBS PER DAY IAADIADOO 70965 [facility] INFLUENZA INC INC IAADIADOO 17465 [facility] STREPTOCO INC INC CCUS GROUP A REMOVAL 16335 A C CORINNE IMPACTED 7 TYREE SEE CERUMEN PSC IRRIGATIO N/[place] [address] [facility] HEPATITIS 7 [facility] B INC INC SURFACE ANTIGEN HEPATITIS 22123 [facility] C 7 [facility] ANTIBODY INC INC OPHTH 10788 [facility]G XM&EVAL COMPRHNSV ESTAB PT 1/> ETONOGEST J7307 [facility] REL 4 PHYSICIAN MATTY CNTRACPT S GROUP IMPL SYS INCL IMPL & SPL INSJ 72249 [facility] NON-BIODE 4 PHYSICIAN MATTY GRADABLE S GROUP DRUG DELIVERY IMPLANT URINE 71786 [facility] 4 PHYSICIAN MATTY TEST S GROUP VISUAL COLOR CMPRSN METHS CYTP C/V 19703 [facility]LES[facility] AUTO THIN 4 LLC ER JR ABILIO LYR PREPJ SCR MNL RESCR PHYS 85153 [facility] ALLRAN JR DELIVERY 4 PHYSICIAN JUAN PABLO ONLY S GROUP ANESTHESI 87387 [facility] SHAYNA A 4 ANESTH SANTIAGO OF THE DELIVERY BLUE ONLY 46477 MALORIE ESPANA DELIVERY 4 MATTY MATTY ONLY W/POSTPAR JESUSITA CARE DOPPLER 38304 MALORIE ESPANA VELOCIMET 4 MATTY MATTY RY UMBILICAL ARTERY 88416 MAL[facility]IE ZAVALETAE BIOPHYSIC 4 MATTY MATTY AL PROFILE W/O NON-STRES S TESTING US PREG 27717 MALORIE ESPANA UTERUS 4 MATTY MATTY REAL TIME F/U TRNSABDL PER FETUS US PREG 56377 ESPANA ESPANA UTERUS 4 MATTY MATTY REAL TIME F/U TRNSABDL PER FETUS 90454 ESPANA ESPANA BIOPHYSIC 4 MATTY MATTY AL PROFILE W/O NON-STRES S TESTING DOPPLER 01678 ESPANA ESPANA VELOCIMET 4 MATTY MATTY RY UMBILICAL ARTERY CUL BACT 91497 COMBINED COMBINED XCPT 4 PHYSICIAN PHYSICIAN URINE S LA S LA BLOOD/STO OL AEROBIC ISOL US PREG 97550 MALORIE ESPANA UTERUS 4 MATTY MATTY REAL TIME F/U TRNSABDL PER FETUS 46466 ESPANA ESPANA BIOPHYSIC 4 MATTY MATTY AL PROFILE W/O NON-STRES S TESTING DOPPLER 32910 ESPANA ESPANA VELOCIMET 4 MATTY MATTY RY UMBILICAL ARTERY THERAPEUT 85317 [facility] IC [facility] PROPHYLAC INC INC TIC/DX INJECTION SUBQ/IM 35337 [facility] NONSTRESS 4 [facility] TEST INC INC CULTURE 13665 [facility] GALAVIZ BACTERIAL 4 [facility] II BHARAT INC QUANTTATI VE COLONY COUNT URINE URNLS DIP 95495 [facility] PERRYON 4 [facility] STICK/TAB INC [place] [address] [facility] INFUSION 4 [facility] THERAPY/P INC INC ROPHYLAXI S /DX 1ST TO 1 HR GLUCOSE 49442 ESPANA ESPANA TOLERANCE 4 MATTY MATTY TEST GTT 3 SPECIMENS US PREG 63037 MALORIE ESPANA UTERUS 4 MATTY MATTY AFTER 1ST TRIMEST GESTATION BLOOD 88822 [facility] COUNT 4 [facility] COMPLETE INC INC AUTO&AUTO DIFRNTL WBC PROTHROMB 46137 [facility] IN TIME 4 [facility] INC INC FIBRINOGE 75738 [facility] N 4 [facility] ACTIVITY INC INC FIBRIN 21482 [facility] DGRADJ 4 [facility] PRODUCTS INC INC D-DIMER QUAL/SEMI ODALIS TRANSFERA 03309 [facility] SE 4 [facility] ALANINE INC INC AMINO ALT SGPT TRANSFERA 85419 [facility] SE 4 [facility] ASPARTATE INC INC AMINO AST SGOT THROMBOPL 76802 [facility] ASTIN 4 [facility] TIME INC INC PARTIAL PLASMA/[place] [address] [facility] BLOOD/URI 4 [facility] C ACID INC INC BASIC 56715 [facility] METABOLIC 4 [facility] PANEL INC INC CALCIUM TOTAL US PREG 04728 MALORIE ESPANA UTERUS 4 MATTY MATTY REAL TIME W/IMAGE DCMTN TRANSVAG IADNA 51301 MARTINEZ MARTINEZ CHLAMYDIA 4 VAL VAL TRACHOMAT IS AMPLIFIED PROBE TQ URINE 73318 MALORIE ESPANA 4 MATTY MATTY TEST VISUAL COLOR CMPRSN METHS CYTP C/V 81451 AMRTINEZ MARTINEZ AUTO THIN 4 VAL VAL LYR PREPJ SCR MNL RESCR PHYS CYTP 54625 MARTINEZ MARTINEZ CERVICAL/ 4 VAL VAL VAGINAL REQ INTERP PHYSICIAN IADNA 35856 MARTINEZ MARTINEZ NEISSERIA 4 VAL VAL GONORRHOE AE AMPLIFIED PROBE TQ INCIS 71.09 [place] VULVA/YULI BUENO MD INEUM NEC Encounters Encounter Start End Date Code Location Performer Type Date [facility] - 7 7 [facility] OUTPATIEN INC T EMERGENCY 17910 [facility] 7 7 [facility] DEPARTMEN INC T VISIT HIGH/URGE NT SEVERITY EMERGENCY 75893 [facility] 7 7 [facility] DEPARTMEN INC T VISIT LOW/MODER SEVERITY EMERGENCY 65410 LAURA NIELSEN DEPT 7 7 PHYSICIAN VISIT S, [facility] HIGH SEVERITY& THREAT [facility] MAR[facility] - 7 7 [facility] OUTPATIEN INC T OFFICE 41302 [facility] MAL[facility]IE BOLIVAR 7 7 PHYSICIAN T VISIT GROUP 15 MINUTES OFFICE 94375 A C KILPELA OUTPATIEN 7 7 TYREE SEE T VISIT PSC 15 MINUTES OFFICE 39732 A C LEE OUTPATIEN 7 7 TYREE SEE T VISIT PSC 25 MINUTES [facility]OSPITAL [facility] - 7 7 [facility] OUTPATIEN INC T OFFICE 96410 [facility] BOLIVAR 7 7 [facility] T [facility] 10 INC MINUTES OFFICE 74758 A C CORINNE OUTPATIEN 7 7 TYREE SEE T VISIT PSC 15 MINUTES HOSPITAL [facility]NI - 7 7 [facility] OUTPATIEN INC T OFFICE 92596 [facility]IE BOLIVAR 7 7 PHYSICIAN T VISIT GROUP 15 MINUTES OFFICE 82500 [facility] BOLIVAR 5 5 PHYSICIAN MATTY T VISIT S GROUP 15 MINUTES OFFICE 10237 A C AMB OUTPATIBRITTNEY 5 5 TYREE SEE T VISIT PSC 15 MINUTES OFFICE 52739 [facility] ESPANA OUTPATIEN 4 4 PHYSICIAN MATTY T VISIT S GROUP 25 MINUTES OFFICE 28870 [facility] ESPANA OUTPATIEN 4 4 PHYSICIAN MATTY T VISIT S GROUP 15 MINUTES OFFICE 07777 ESPANA ESPANA OUTPATIEN 4 4 MATTY MATTY T VISIT 15 MINUTES OFFICE 96228 ESPANA ESPANA OUTPATIEN 4 4 MATTY MATTY T VISIT 15 MINUTES OFFICE 53440 ESPANA ESPANA OUTPATIEN 4 4 MATTY MATTY T VISIT 15 MINUTES OFFICE 93491 ESPANA ESPANA OUTPATIEN 4 4 MATTY MATTY T VISIT 15 MINUTES HOSPITAL [facility] - 4 4 [facility] OUTPATIEN INC T OFFICE 37212 ESPANA ESPANA OUTPATIEN 4 4 MATTY MATTY T VISIT 15 MINUTES HOSPITAL [facility] - 4 4 [facility] OUTPATIEN INC T OFFICE 47945 ESPANA ESPANA OUTPATIEN 4 4 MATTY MATTY T VISIT 15 MINUTES OFFICE 23189 ESPANA ESPANA OUTPATIEN 4 4 MATTY MATTY T VISIT 15 MINUTES OFFICE 40138 ESPANA ESPANA OUTPATIEN 4 4 MATTY MATTY T VISIT 5 MINUTES OFFICE 99471 ESPANA ESPANA OUTPATIEN 4 4 MATTY MATTY T VISIT 15 MINUTES OFFICE 47413 ESPANA ESPANA OUTPATIEN 4 4 MATTY MATTY T VISIT 15 MINUTES OFFICE 26718 ESPANA ESPANA OUTPATIEN 4 4 MATTY MATTY T VISIT 15 MINUTES OFFICE 27896 ESPANA ESPANA OUTPATIEN 4 4 MATTY MATTY T VISIT 15 MINUTES HOSPITAL MAR[facility] - 4 4 [facility] OUTPATIEN INC T OFFICE 34928 ESPANA ESPANA OUTPATIEN 4 4 MATTY MATTY T VISIT 15 MINUTES OFFICE 53452 FIELD AMB FIELD AMB OUTPATIEN 4 4 T VISIT 15 MINUTES OFFICE 56020 MALORIE ESPANA OUTPATIEN 4 4 MATTY MATTY T VISIT 15 MINUTES OFFICE 32321 ESP[facility] ESPANA OUTPATIEN 4 4 MATTY MATTY T VISIT 25 MINUTES Emergency REJI BUENO MD (ER) 3 14:33 3 16:10 [facility] Emergency REJI Kenney MD (ER) 3 07:00 3 07:28 [facility] Emergency REJI PURVIS (ER) 3 18:56 3 20:56 [facility]
--- OUTSIDE RECORDS SUMMARY | 2017-06-28 18:35 | External Medical Summary Rpt | CCD ---
Author Author , NICK Organization JESUSLINN Address Unknown Phone [email or web address]) Care Team Providers Care Ict Development Manager Name Role Phone A Thien CLEMENTS [...] [facility], Unavailable Unavailable [facility], Unavailable Unavailable [facility] NIELSEN, NIELSEN Unavailable Unavailable KILPELA, [...] [facility] [id number] ENCOUNTER 04-10-[address] [facility] FOR PHYSICIAN GROUP TEST RESULT POSITIVE D500 [...] 10-30-2016 A Thien CLEMENTS BRONCHITIS PSC UNSPECIFIED [id number] ENCOUNTER 10-11-[address] [facility] INITIAL PHYSICIAN PRESCRIPTIO GROUP N CONTRACEPT PILLS Z7251 HIGH RISK 10-11-[address] [facility] HETEROSEXUA PHYSICIAN L BEHAVIOR GROUP 6262 EXCESSIVE 02-02-[address] [facility] OR FREQUENT PHYSICIANS GROUP MENSTRUATIO N 6264 IRREGULAR 02-02-[address] [facility] MENSTRUAL PHYSICIANS CYCLE GROUP V2541 SURVEILLANC 02-02-[address] [facility] E PREV PHYSICIANS PRESCRIBED GROUP CONTRACEPT PILL 3671 MYOPIA 01-06-2015 [facility] 6918 OTHER 12-27-2014 A Thien CLEMENTS ATOPIC PSC DERMATITIS AND RELATED CONDITIONS V255 INSERTION 09-07-[address] [facility] OF PHYSICIANS IMPLANTABLE GROUP SUBDERMAL CONTRACEPTI VE V242 ROUTINE 08-31-2014 [facility] FOLLOW-UP V7231 ROUTINE 08-31-[address] [facility] GYNECOLOGIC PHYSICIANS AL GROUP EXAMINATION 43955 FETOPELVIC 07-14-[address] [facility] DISPROPORTI PHYSICIANS ON, GROUP DELIVERED 35728 C/S DELIV 07-14-[address] [facility] W/O INDICAT PHYSICIANS DELIV W/WO GROUP ANTPRTM COND V270 OUTCOME OF 07-14-[address] [facility] DELIVERY PHYSICIANS SINGLE GROUP LIVEBORN 02995 POST TERM 07-12-2014 [facility] MATTY ANTEPARTUM COND/COMPLI CATION 15719 POOR 07-12-2014 [facility] MATTY GROWTH MGMT MOTH ANTPRTM COND/COMP V220 SUPERVISION 07-05-2014 [facility] STARR OF NORMAL FIRST 97202 THREATENED 05-07-2014 [facility] ANTEPARTUM V283 ENCOUNTER 02-18-2014 [facility] STARR ROUTINE SCREEN MALFORMATIO N ULTRASONIC 70896 TRANSIENT 02-17-2014 [facility] HYPERTENSIO [facility] OF INC ANTEPARTUM 6921 CONTACT 01-05-2014 FIELD AMB DERMATITIS& OTHER ECZEMA DUE OILS&GREASE S 39219 OTHER 12-03-2013 [facility] MATTY SPECIFED COMPLICATIO N ANTEPARTUM 77284 PAP SMER 11-26-2013 [facility] VAL CERV W/LW GRADE SQUAMOUS INTRAEPITH LES V221 SUPERVISION 11-26-2013 [facility] VAL OF OTHER NORMAL V7242 11-26-2013 [facility] STARR EXAMINATION OR TEST POSITIVE RESULT V745 SCREENING 11-26-2013 [facility] VAL EXAMINATION FOR VENEREAL DISEASE 616.4 616.4 09-10-2013 Marni ABSCESS OF [facility] VULVA [facility] 305.1 305.1 04-08-2013 [place] TOBACCO USE [facility] 848.3 848.3 04-08-2013 Marni SPRAIN OF [facility] E000.0 E000.0 04-08-2013 [place] CIVILIAN [facility] DONE FOR INCOME OR PAY E927.0 E927.0 04-08-2013 [place] OVEREXERTIO [facility] FROM [facility] SUDDEN STRENUOUS MOVEMENT V14.5 V14.5 04-08-2013 [place] HX-NARCOTIC [facility] V14.8 V14.8 04-08-2013 [place] HX-DRUG [facility] ALLERGY [facility] 276.51 276.51 11-04-2012 [place] DEHYDRATION [facility] 599.0 599.0 URIN 11-04-2012 [place] TRACT [facility] INFECTION Hospital NOS [id number] O03.9 COMPLETE OR UNSP SPONTANEOUS WITHOUT COMPLICATIO [...] 10 5- 0- 0 07 MA ve OR 47 20 20 47 RT 01 17 [...] DOS Code Location Performer Comment [place] PREG 52893 [facility] UTERUS 7 [facility] REAL TIME [place] W/[place] [address] [facility] INCOMPLET 7 [facility] E INC INC ANY TRIMESTER SURGICAL GONADOTRO 67740 [facility] PIN 7 [facility] CHORIONIC INC INC QUANTITAT LINDSEY COMPREHEN 92074 [facility] SIVE 7 [facility] METABOLIC INC INC PANEL BLOOD 99686 [facility] COUNT 7 [facility] COMPLETE INC INC AUTO&AUTO DIFRNTL WBC URNLS DIP 12235 [facility] 7 [facility] STICK/TAB INC INC LET REAGENT AUTO MICROSCOP Y BLOOD 12894 [facility] COUNT 7 [facility] COMPLETE INC INC AUTO&[place] [address] [facility] INFUSION 7 [facility] THERAPY/P INC INC ROPHYLAXI S /DX 1ST TO 1 HR TISS CARLYN 31461 [facility] SLIDE 7 [facility] SAMPS INC INC SKN/HR/NL S FNGI/ECTO PARASIT SMR PRIM 39606 [facility] SRC WET 7 [facility] MOUNT INC INC NFCT AGT URINE 40342 [facility]ER 7 [facility] TEST INC INC VISUAL COLOR CMPRSN METHS US PREG 37021 [facility] UTERUS 7 [facility] REAL TIME INC INC W/IMAGE DCMTN TRANSVAG GONADOTRO 03130 [facility] PIN 7 [facility] CHORIONIC INC INC QUANTITAT LINDSEY URINE [address] [facility] MALORIE 7 PHYSICIAN TEST GROUP VISUAL COLOR CMPRSN METHS DRUG TEST [address] [facility] MALORIE PRSMV 7 PHYSICIAN QUAL DIR GROUP OPTICAL OBS PER DAY IAADIADOO 53142 [facility] INFLUENZA INC INC IAADIADOO 00587 [facility] GR[facility]ER 7 [facility] STREPTOCO INC INC CCUS GROUP A REMOVAL 07929 A C CORINNE IMPACTED 7 TYREE SEE CERUMEN PSC IRRIGATIO N/[place] [address] [facility] HEPATITIS 7 [facility] B INC INC SURFACE ANTIGEN HEPATITIS 53285 [facility] C 7 [facility] ANTIBODY INC INC OPHTH [address] MEDICAL 5 ANG ANG XM&EVAL COMPRHNSV ESTAB PT 1/> ETONOGEST J7307 [facility] MALORIE REL 4 PHYSICIAN MATTY CNTRACPT S GROUP IMPL SYS INCL IMPL & SPL INSJ [address] [facility] MAL[facility]IE NON-BIODE 4 PHYSICIAN MATTY GRADABLE S GROUP DRUG DELIVERY IMPLANT URINE [address] [facility] MALORIE 4 PHYSICIAN MATTY TEST S GROUP VISUAL COLOR CMPRSN METHS CYTP C/V 41551 [facility], PICKLESIM AUTO THIN 4 LLC ER JR ABILIO LYR PREPJ SCR MNL RESCR PHYS [address] [facility] ALLRAN JR DELIVERY 4 PHYSICIAN JUAN PABLO ONLY S GROUP ANESTHESI 534[address] [facility] SHAYNA A 4 ANESTH [place] OF THE DELIVERY BLUE ONLY 70663 MAL[facility] ESPANA DELIVERY 4 MATTY MATTY ONLY W/POSTPAR JESUSITA CARE DOPPLER 13456 [facility] ESPANA VELOCIMET 4 MATTY MATTY RY UMBILICAL ARTERY 49753 [facility] ZAVALETAE BIOPHYSIC 4 MATTY MATTY AL PROFILE W/O NON-STRES S TESTING US PREG 26557 [facility] ESPANA UTERUS 4 MATTY MATTY REAL TIME F/U TRNSABDL PER FETUS US PREG 83563 ESP[facility] ESPANA UTERUS 4 MATTY MATTY REAL TIME F/U TRNSABDL PER FETUS 93259 [facility] ESPANA BIOPHYSIC 4 MATTY MATTY AL PROFILE W/O NON-STRES S TESTING DOPPLER 76308 [facility] ESPANA VELOCIMET 4 MATTY MATTY RY UMBILICAL ARTERY CUL BACT 68166 COMBINED COMBINED XCPT 4 PHYSICIAN PHYSICIAN URINE S LA S LA BLOOD/STO OL AEROBIC ISOL US PREG 91007 MAL[facility] ESPANA UTERUS 4 MATTY MATTY REAL TIME F/U TRNSABDL PER FETUS 52627 [facility] ESPANA BIOPHYSIC 4 MATTY MATTY AL PROFILE W/O NON-STRES S TESTING DOPPLER 78607 ESP[facility] ESPANA VELOCIMET 4 MATTY MATTY RY UMBILICAL ARTERY THERAPEUT 83545 [facility] IC 4 [facility] PROPHYLAC INC INC TIC/DX INJECTION SUBQ/IM 60209 [facility] NONSTRESS 4 [facility] TEST INC INC CULTURE 62874 MARNI GALAVIZ BACTERIAL 4 [facility] II BHARAT INC QUANTTATI VE COLONY COUNT URINE URNLS DIP 73279 [facility] PERRYON 4 [facility] STICK/TAB INC [place] [address] [facility] INFUSION 4 [facility] THERAPY/P INC INC ROPHYLAXI S /DX 1ST TO 1 HR GLUCOSE 16852 ESPANA ESPANA TOLERANCE 4 MATTY MATTY TEST GTT 3 SPECIMENS US PREG 65393 MAL[facility] ESPANA UTERUS 4 MATTY MATTY AFTER 1ST TRIMEST GESTATION BLOOD 69962 [facility] COUNT 4 [facility] COMPLETE INC INC AUTO&AUTO DIFRNTL WBC PROTHROMB 37636 [facility] IN TIME 4 [facility] INC INC FIBRINOGE 58372 [facility] N 4 [facility] ACTIVITY INC INC FIBRIN 49172 [facility] DGRADJ 4 [facility] PRODUCTS INC INC D-DIMER QUAL/SEMI ODALIS TRANSFERA 38863 [facility] SE 4 [facility] ALANINE INC INC AMINO ALT SGPT TRANSFERA 90832 [facility] SE 4 [facility] ASPARTATE INC INC AMINO AST SGOT THROMBOPL 85349 [facility] ASTIN 4 [facility] TIME INC INC PARTIAL PLASMA/[place] [address] [facility] BLOOD/URI 4 [facility] C ACID INC INC BASIC 34191 [facility] METABOLIC 4 [facility] PANEL INC INC [place]CIUM TOTAL US PREG 26292 MAL[facility]IE ESPANA UTERUS 4 MATTY MATTY REAL TIME W/IMAGE DCMTN TRANSVAG IADNA 96973 [facility] MARTINEZ CHLAMYDIA 4 VAL VAL TRACHOMAT IS AMPLIFIED PROBE TQ URINE 91114 MAL[facility]IE ESPANA 4 MATTY MATTY TEST VISUAL COLOR CMPRSN METHS CYTP C/V 86022 MART[facility]Z MARTINEZ AUTO THIN 4 VAL VAL LYR PREPJ SCR MNL RESCR PHYS CYTP 79084 MART[facility]Z MARTINEZ CERVICAL/ 4 VAL VAL VAGINAL REQ INTERP PHYSICIAN IADNA 86743 M[facility]Z MARTINEZ NEISSERIA 4 VAL VAL GONORRHOE AE AMPLIFIED PROBE TQ INCIS 71.09 [place] VULVA/YULI BUENO MD INEUM NEC Encounters Encounter Start End Date Code Location Performer Type Date [facility] - 7 7 [facility] OUTPATIEN INC T EMERGENCY 42188 [facility] 7 7 [facility] DEPARTMEN INC T VISIT HIGH/URGE NT SEVERITY EMERGENCY 57524 [facility] 7 7 [facility] DEPARTMEN INC T VISIT LOW/MODER SEVERITY EMERGENCY 38938 LAURA NIELSEN DEPT 7 7 PHYSICIAN VISIT S, [facility] HIGH SEVERITY& THREAT [facility] - 7 7 [facility] OUTPATIEN INC T OFFICE [address] [facility] MALORIE BOLIVAR 7 7 PHYSICIAN T VISIT GROUP 15 MINUTES OFFICE 86209 A C KILPELA OUTPATIEN 7 7 TYREE SEE T VISIT PSC 15 MINUTES OFFICE 01707 A C LEE OUTPATIEN 7 7 TYREE SEE T VISIT PSC 25 MINUTES HOSPITAL [facility] - 7 7 [facility] OUTPATIEN INC T OFFICE 56880 MARNI BOLIVAR 7 7 [facility] T [facility] 10 INC MINUTES OFFICE 32238 A C CORINNE OUTPATIEN 7 7 TYREE SEE T VISIT PSC 15 MINUTES HOSPITAL MARNI - 7 7 [facility] OUTPATIEN INC T OFFICE [address] [facility] MALORIE BOLIVAR 7 7 PHYSICIAN T VISIT GROUP 15 MINUTES OFFICE [address] [facility] MALORIE BOLIVAR 5 5 PHYSICIAN MATTY T VISIT S GROUP 15 MINUTES OFFICE 61628 A C AMB OUTPATIBRITTNEY 5 5 TYREE SEE T VISIT PSC 15 MINUTES OFFICE [address] [facility] ESPANA OUTPATIEN 4 4 PHYSICIAN MATTY T VISIT S GROUP 25 MINUTES OFFICE [address] [facility] ESPANA OUTPATIEN 4 4 PHYSICIAN MATTY T VISIT S GROUP 15 MINUTES OFFICE 27275 ESP[facility] ESPANA OUTPATIEN 4 4 MATYT MATTY T VISIT 15 MINUTES OFFICE 87560 [facility] ESPANA OUTPATIEN 4 4 MATTY MATTY T VISIT 15 MINUTES OFFICE 80642 ESP[facility] ESPANA OUTPATIEN 4 4 MATTY MATTY T VISIT 15 MINUTES OFFICE 06980 ESP[facility] ESPANA OUTPATIEN 4 4 MATTY MATTY T VISIT 15 MINUTES HOSPITAL [facility] - 4 4 [facility] OUTPATIEN INC T OFFICE 72009 ESP[facility] ESPANA OUTPATIEN 4 4 MATTY MATTY T VISIT 15 MINUTES HOSPITAL MARNI - 4 4 [facility] OUTPATIEN INC T OFFICE 67216 ESP[facility] ESPANA OUTPATIEN 4 4 MATTY MATTY T VISIT 15 MINUTES OFFICE 06225 [facility] ESPANA OUTPATIEN 4 4 MATTY MATTY T VISIT 15 MINUTES OFFICE 27368 ESPANA ESPANA OUTPATIEN 4 4 MATTY MATTY T VISIT 5 MINUTES OFFICE 60485 ESPANA ESPANA OUTPATIEN 4 4 MATTY MATTY T VISIT 15 MINUTES OFFICE 12301 ESPANA ESPANA OUTPATIEN 4 4 MATTY MATTY T VISIT 15 MINUTES OFFICE 81348 ESPANA ESPANA OUTPATIEN 4 4 MATTY MATTY T VISIT 15 MINUTES OFFICE 90330 ESPANA ESPANA OUTPATIEN 4 4 MATTY MATTY T VISIT 15 MINUTES HOSPITAL MARNI - 4 4 [facility] OUTPATIEN INC T OFFICE 16051 ESPANA ESPANA OUTPATIEN 4 4 MATTY MATTY T VISIT 15 MINUTES OFFICE 80894 FIELD AMB FIELD AMB OUTPATIEN 4 4 T VISIT 15 MINUTES OFFICE 87427 MALORIE ESPANA OUTPATIEN 4 4 MATTY MATTY T VISIT 15 MINUTES OFFICE 63195 ESP[facility] ESPANA OUTPATIEN 4 4 MATTY MATTY T VISIT 25 MINUTES Emergency REJI BUENO MD (ER) 3 14:33 3 16:10 [facility] Emergency REJI Kenney MD (ER) 3 07:00 3 07:28 [facility] Emergency REJI PURVIS (ER) 3 18:56 3 20:56 [facility]
--- OUTSIDE RECORDS SUMMARY | 2017-06-28 18:36 | External Medical Summary Rpt | CCD ---
Author Author , NICK [place] NICK Address Unknown Phone [email or web address] Care Team Providers Care Airport Skilled Maintenance Supervisor Name Role Phone A Thien CLEMENTS MD [...] Unavailable Unavailable INC[facility], Unavailable Unavailable [facility], Unavailable Unavailable [facility] NIELSEN, NIELSEN Unavailable Unavailable KILPELA, KILPELA Unavailable Unavailable MARTINEZ VAL, MARTINEZ Unavailable Unavailable VAL MARTINEZ VAL, MARTINEZ Unavailable Unavailable VAL CORINNE, CORINNE Unavailable Unavailable [facility] GALAVIZ II BHARAT, Unavailable Unavailable [facility] BH[facility] KNOX, Unavailable Unavailable NISHA REDDY ABILIO SCIFRES [...] TRIMESTER Z3A01 LESS THAN 8 04-15-2017 [facility] OF Z720 TOBACCO USE 04-15-2017 [facility] Z3201 ENCOUNTER 04-10-2017 [facility] TEST RESULT POSITIVE [...] MANIFESTATI ONS H6123 IMPACTED 10-30-2016 A Thien SALDIVAR MD PSC BILATERAL J209 ACUTE 10-30-2016 A Thien CLEMENTS BRONCHITIS PSC UNSPECIFIED [id number] ENCOUNTER 10-11-2016 [facility] INITIAL PHYSICIAN PRESCRIPTIO GROUP N CONTRACEPT PILLS Z7251 HIGH RISK 10-11-2016 [facility] HETEROSEXUA PHYSICIAN L BEHAVIOR GROUP 6262 EXCESSIVE 02-02-2015 [facility] OR FREQUENT PHYSICIANS GROUP MENSTRUATIO N 6264 IRREGULAR 02-02-2015 [facility] MENSTRUAL PHYSICIANS CYCLE GROUP V2541 SURVEILLANC 02-02-2015 [facility] E PREV PHYSICIANS PRESCRIBED GROUP CONTRACEPT PILL 3671 MYOPIA 01-06-2015 SCIFRES ANG 6918 OTHER 12-27-2014 A Thien CLEMENTS [facility] DERMATITIS AND RELATED CONDITIONS V255 INSERTION 09-07-2014 [facility] IMPLANTABLE GROUP SUBDERMAL CONTRACEPTI VE V242 ROUTINE 08-31-2014 [facility] FOLLOW-UP V7231 ROUTINE 08-31-2014 [facility] GYNECOLOGIC PHYSICIANS AL GROUP EXAMINATION 43072 FETOPELVIC 07-14-2014 [facility] DISPROPORTI PHYSICIANS ON, GROUP DELIVERED 98747 C/S DELIV 07-14-2014 [facility] W/O INDICAT PHYSICIANS DELIV W/WO GROUP ANTPRTM COND V270 OUTCOME OF 07-14-2014 [facility] DELIVERY PHYSICIANS SINGLE GROUP LIVEBORN 70613 POST TERM 07-12-2014 [facility] ANTEPARTUM COND/COMPLI CATION 42138 POOR 07-12-2014 [facility] GROWTH MGMT MOTH ANTPRTM COND/COMP V220 SUPERVISION 07-05-2014 [facility] OF NORMAL FIRST 39330 THREATENED 05-07-2014 [facility] ANTEPARTUM V283 ENCOUNTER 02-18-2014 [facility] ROUTINE SCREEN MALFORMATIO N ULTRASONIC 76603 TRANSIENT 02-17-2014 [facility] N OF INC ANTEPARTUM 6921 CONTACT 01-05-2014 FIELD AMB DERMATITIS& OTHER ECZEMA DUE OILS&GREASE S 71456 OTHER 12-03-2013 [facility] SPECIFED COMPLICATIO N ANTEPARTUM 30248 PAP SMER 11-26-2013 MARTINEZ VAL CERV W/LW [...] 10 5- 0- 0 07 MA ve OK 47 20 20 47 RT 01 17 17 09 R 3 79 PH PH AR OS MA CY 75 #5 MG 91 CA PS UL E Procedures Procedure DOS Code Location Performer Comment GONADOTRO 05555 [facility] PIN [facility] [place] [address] [facility] INCOMPLET 7 [facility] E INC INC ANY TRIMESTER SURGICAL US PREG 20024 [facility] UTERUS 7 [facility] REAL TIME INC INC W/IMAGE DCMTN TRANSVAG COMPREHEN 93171 [facility] SIVE 7 [facility] METABOLIC INC INC PANEL BLOOD 17301 [facility] COUNT 7 [facility] COMPLETE INC INC AUTO&[place] [address] [facility] INFUSION 7 [facility] THERAPY/P INC INC ROPHYLAXI S /DX 1ST TO 1 HR BLOOD 24375 [facility] COUNT 7 [facility] COMPLETE INC INC AUTO&AUTO DIFRNTL WBC URNLS DIP 46852 [facility] 7 [facility] STICK/TAB INC INC LET REAGENT AUTO MICROSCOP Y GONADOTRO 38098 [facility] PIN 7 [facility] CHORIONIC INC INC [place]IT[place] PREG 68998 [facility] UTERUS 7 [facility] REAL TIME INC INC W/IMAGE DCMTN TRANSVAG URINE 77924 [facility] 7 [facility] TEST INC INC VISUAL COLOR CMPRSN METHS SMR PRIM 65937 [facility] SRC WET 7 [facility] MOUNT INC INC NFCT AGT TISS CARLYN 79976 [facility] SLIDE 7 [facility] SAMPS INC INC SKN/HR/NL S FNGI/ECTO PARASIT URINE 10385 [facility] ESPANA 7 PHYSICIAN TEST GROUP VISUAL COLOR CMPRSN METHS DRUG TEST 39652 [facility] PRSMV 7 PHYSICIAN QUAL DIR GROUP OPTICAL OBS PER DAY IAADIADOO 96483 [facility] 7 [facility] INFLUENZA INC INC IAADIADOO 63990 [facility] 7 [facility] STREPTOCO INC INC CCUS GROUP A REMOVAL 56103 A C CORINNE IMPACTED 7 TYREE SEE CERUMEN PSC IRRIGATIO N/[place] [address] [facility] HEPATITIS 7 [facility] B INC INC SURFACE ANTIGEN HEPATITIS 37224 [facility] C 7 [facility] ANTIBODY INC INC OPHTH 77587 [facility] 5 ANG ANG XM&EVAL COMPRHNSV ESTAB PT 1/> INSJ 90134 [facility] MALORIE NON-BIODE 4 PHYSICIAN MATTY GRADABLE S GROUP DRUG DELIVERY IMPLANT ETONOGEST J7307 [facility] MALORIE REL 4 PHYSICIAN MATTY CNTRACPT S GROUP IMPL SYS INCL IMPL & SPL URINE 35685 [facility] MALORIE 4 PHYSICIAN MATTY TEST S GROUP VISUAL COLOR CMPRSN METHS CYTP C/V 53060 [facility] AUT[facility]IN 4 LLC ER JR ABILIO LYR PREPJ SCR MNL RESCR PHYS 55573 [facility] ZAVALETAE DELIVERY 4 MATTY MATTY ONLY W/POSTPAR JESUSITA CARE ANESTHESI 92605 [facility] SHAYNA A 4 ANESTH [place] OF THE DELIVERY BLUE ONLY 34667 [facility] ALLRAN JR DELIVERY 4 PHYSICIAN JAUN PABLO ONLY S GROUP US PREG 78104 ESP[facility]o ESPANA UTERUS 4 MATTY MATTY REAL TIME F/U TRNSABDL PER FETUS DOPPLER 53196 [facility] ESP[facility] VELOCIMET 4 MATTY MATTY RY UMBILICAL ARTERY 85571 [facility] BIOPHYSIC 4 MATTY MATTY AL PROFILE W/O NON-STRES S TESTING 41388 [facility] BIOPHYSIC 4 MATTY MATTY AL PROFILE W/O NON-STRES S TESTING DOPPLER 72550 [facility] ESP[facility] VELOCIMET 4 MATTY MATTY RY UMBILICAL ARTERY US PREG 25256 ESP[facility] ESP[facility] UTERUS 4 MATTY MATTY REAL TIME F/U TRNSABDL PER FETUS CUL BACT 33230 COMBINED COMBINED XCPT 4 PHYSICIAN PHYSICIAN URINE S LA S LA BLOOD/STO OL AEROBIC ISOL 57800 [facility] BIOPHYSIC 4 MATTY MATTY AL PROFILE W/O NON-STRES S TESTING DOPPLER 60759 [facility] VELOCIMET 4 MATTY MATTY RY UMBILICAL ARTERY US PREG 03128 [facility] UTERUS 4 MATTY MATTY REAL TIME F/U TRNSABDL PER FETUS THERAPEUT 81124 [facility] IC 4 [facility] PROPHYLAC INC INC TIC/DX INJECTION SUBQ/IM 42768 [facility] NONSTRESS 4 MATTY MATTY TEST CULTURE 13673 [facility] G[facility] BACTERIAL 4 [facility] II BHARAT [place] [address] [facility] INFUSION 4 [facility] THERAPY/P INC INC ROPHYLAXI S /DX 1ST TO 1 HR URNLS DIP 16402 [facility] 4 [facility] STICK/TAB INC INC LET REAGENT AUTO MICROSCOP Y GLUCOSE 48265 [facility] TOLERANCE 4 MATTY MATTY TEST GTT 3 SPECIMENS US PREG 54137 [facility] UTERUS 4 MATTY MATTY AFTER 1ST TRIMEST 1/ GESTATION TRANSFERA 92920 [facility] SE 4 [facility] ASPARTATE INC INC AMINO AST SGOT TRANSFERA 20763 [facility] SE 4 [facility] ALANINE INC INC AMINO ALT SGPT BASIC 63642 [facility] METABOLIC 4 [facility] [place] [address] [facility] BLOOD/URI 4 [facility] C ACID INC INC THROMBOPL 93684 [facility] ASTIN 4 [facility] TIME INC INC PARTIAL PLASMA/WH OLE BLOOD FIBRIN 59237 [facility] DGRADJ 4 [facility] PRODUCTS INC INC D-DIMER QUAL/SEMI ODALIS FIBRINOGE 71382 [facility] N 4 [facility] ACTIVITY INC INC PROTHROMB 10313 [facility] IN TIME 4 [facility] INC INC BLOOD 19474 [facility] COUNT 4 [facility] COMPLETE INC INC AUTO&[place]RNT[place]BC [place] PREG 65056 [facility] UTERUS 4 MATTY MATTY REAL TIME W/IMAGE DCMTN TRANSVAG CYTP 20994 MARTINEZ MARTINEZ CERVICAL/ 4 VAL VAL VAGINAL REQ INTERP PHYSICIAN CYTP C/V 46987 MARTINEZ MARTINEZ AUTO THIN 4 VAL VAL LYR PREPJ SCR MNL RESCR PHYS IADNA 37668 MARTINEZ MARTINEZ NEISSERIA 4 VAL VAL GONORRHOE AE AMPLIFIED PROBE TQ IADNA 26240 MARTINEZ MARTINEZ CHLAMYDIA 4 VAL VAL TRACHOMAT IS AMPLIFIED PROBE TQ URINE 92254 [facility] ESP[facility] 4 MATTY MATTY TEST VISUAL COLOR CMPRSN METHS Encounters Encounter Start End Date Code Location Performer Type Date HOSPITAL [facility] 7 7 [facility] OUTPATIEN INC T EMERGENCY 95469 [facility] 7 7 [facility] DEPARTMEN INC T VISIT HIGH/URGE NT SEVERITY EMERGENCY 57513 [facility] 7 7 [facility] DEPARTMEN INC T VISIT LOW/MODER SEVERITY HOSPITAL [facility] - 7 7 [facility] OUTPATIEN INC T EMERGENCY 96248 [facility] NI[facility] DEPT 7 7 PHYSICIAN VISIT S, PLLC HIGH SEVERITY& THREAT FUNCJ OFFICE 11248 [facility] OUTPATIEN 7 7 PHYSICIAN T VISIT GROUP 15 MINUTES OFFICE 95177 A C KILPELA OUTPATIEN 7 7 TYREE SEE T VISIT PSC 15 MINUTES OFFICE 95260 A C KILPELA OUTPATIEN 7 7 [place] SEE T VISIT PSC 25 MINUTES HOSPITAL [facility] - 7 7 [facility] OUTPATIEN INC T OFFICE 39750 [facility] 7 7 MEM [facility] T NEW 10 INC MINUTES OFFICE 66278 A C CORINNE OUTPATIEN 7 7 TYREE SEE T VISIT PSC 15 MINUTES OFFICE 40864 [facility] OUTPATIEN 7 7 PHYSICIAN T VISIT GROUP 15 MINUTES HOSPITAL [facility] - 7 7 [facility] OUTPATIEN INC T OFFICE 83204 [facility] OUTPATIEN 5 5 PHYSICIAN MATTY T VISIT S GROUP 15 MINUTES OFFICE 23745 A C FIELD AMB OUTPATIEN 5 5 TYREE SEE T VISIT PSC 15 MINUTES OFFICE 30465 [facility] OUTPATIEN 4 4 PHYSICIAN MATTY T VISIT S GROUP 25 MINUTES OFFICE 90441 [facility] OUTPATIEN 4 4 PHYSICIAN MATTY T VISIT S GROUP 15 MINUTES OFFICE 51802 [facility] OUTPATIEN 4 4 MATTY MATTY T VISIT 15 MINUTES OFFICE 37727 [facility] OUT[facility]IEN 4 4 MATTY MATTY T VISIT 15 MINUTES OFFICE 61679 [facility] 4 4 MATTY MATTY T VISIT 15 MINUTES OFFICE 61825 [facility] OUTPATIEN 4 4 MATTY MATTY T VISIT 15 MINUTES HOSPITAL [facility] - 4 4 [facility] OUTPATIEN INC T OFFICE 31890 [facility] OUT[facility]IEN 4 4 MATTY MATTY T VISIT 15 MINUTES HOSPITAL [facility] - 4 4 [facility] OUTPATIEN INC T OFFICE 64641 [facility] OUT[facility]IEN 4 4 MATTY MATTY T VISIT 15 MINUTES OFFICE 15859 [facility] OUTPATIEN 4 4 MATTY MATTY T VISIT 15 MINUTES OFFICE 12577 [facility] OUTPATIEN 4 4 MATTY MATTY T VISIT 5 MINUTES OFFICE 36496 [facility] OUT[facility]IEN 4 4 MATTY MATTY T VISIT 15 MINUTES OFFICE 03705 [facility] OUTPATIEN 4 4 MATTY MATTY T VISIT 15 MINUTES OFFICE 94518 [facility] OUT[facility]IEN 4 4 MATTY MATTY T VISIT 15 MINUTES OFFICE 30573 [facility] OUTPATIEN 4 4 MATTY MATTY T VISIT 15 MINUTES HOSPITAL [facility] - 4 4 [facility] OUTPATIEN INC T OFFICE 82297 [facility] OUT[facility]IEN 4 4 MATTY MATTY T VISIT 15 MINUTES OFFICE 01497 FIELD [facility] FIELD AMB OUTPATIEN 4 4 T VISIT 15 MINUTES OFFICE 51359 [facility] OUTPATIEN 4 4 MATTY MATTY T VISIT 15 MINUTES OFFICE 29364 [facility] OUTPATIEN 4 4 MATTY MATTY T VISIT 25 MINUTES
--- OUTSIDE RECORDS SUMMARY | 2017-06-28 18:36 | External Medical Summary Rpt | CCD ---
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 Name Role Phone A Thien CLEMENTS MD [...] Unavailable Unavailable INC, [facility], Unavailable Unavailable [facility], Unavailable Unavailable [facility] NIELSEN, NIELSEN Unavailable Unavailable KILPELA, [...] INC W/O COMPLICATIO N I10 ESSENTIAL 04-15-2017 [facility] HYPERTENSIO INC N O4691 ANTEPARTUM 04-15-2017 [facility], UNS FIRST PLLC TRIMESTER Z3A01 LESS THAN 8 04-15-2017 [facility], GESTATION PLLC OF Z720 TOBACCO USE 04-15-2017 [facility] Z3201 ENCOUNTER 04-10-2017 [facility] FOR PHYSICIAN GROUP TEST RESULT POSITIVE D500 [...] 10-30-2016 A Thien CLEMENTS BRONCHITIS PSC UNSPECIFIED [id number] ENCOUNTER 10-11-2016 [facility] INITIAL PHYSICIAN PRESCRIPTIO GROUP N CONTRACEPT PILLS Z7251 HIGH RISK 10-11-2016 [facility] HETEROSEXUA PHYSICIAN L BEHAVIOR GROUP 6262 EXCESSIVE 02-02-2015 [facility] OR FREQUENT PHYSICIANS GROUP MENSTRUATIO N 6264 IRREGULAR 02-02-2015 [facility] MENSTRUAL PHYSICIANS CYCLE GROUP V2541 SURVEILLANC 02-02-2015 [facility] E PREV PHYSICIANS PRESCRIBED GROUP CONTRACEPT PILL 3671 MYOPIA 01-06-2015 [facility] ANG 6918 OTHER 12-27-2014 A Thien CLEMENTS [facility] DERMATITIS AND RELATED CONDITIONS V255 INSERTION 09-07-2014 [facility] OF PHYSICIANS IMPLANTABLE GROUP SUBDERMAL CONTRACEPTI VE V242 ROUTINE 08-31-2014 [facility] FOLLOW-UP V7231 ROUTINE 08-31-2014 [facility] GYNECOLOGIC PHYSICIANS AL GROUP EXAMINATION 40170 FETOPELVIC 07-14-2014 [facility] DISPROPORTI PHYSICIANS ON, GROUP DELIVERED 71437 C/S DELIV 07-14-2014 [facility] W/O INDICAT PHYSICIANS DELIV W/WO GROUP ANTPRTM COND V270 OUTCOME OF 07-14-2014 [facility] DELIVERY PHYSICIANS SINGLE GROUP LIVEBORN 88334 POST TERM 07-12-2014 [facility] ANTEPARTUM COND/COMPLI CATION 87577 POOR 07-12-2014 [facility] GROWTH MGMT MOTH ANTPRTM COND/COMP V220 SUPERVISION 07-05-2014 [facility] M[facility]Y OF NORMAL FIRST 30463 THREATENED 05-07-2014 [facility] INC ANTEPARTUM V283 ENCOUNTER 02-18-2014 [facility] ROUTINE SCREEN MALFORMATIO N ULTRASONIC 66357 TRANSIENT 02-17-2014 [facility] N OF INC ANTEPARTUM 6921 CONTACT 01-05-2014 FIELD AMB DERMATITIS& OTHER ECZEMA DUE OILS&GREASE S 56851 OTHER 12-03-2013 [facility] SPECIFED COMPLICATIO N ANTEPARTUM 19976 PAP SMER 11-26-2013 MARTINEZ VAL CERV W/LW [...] 10 5- 0- 0 07 MA ve MS 47 20 20 47 RT 01 17 17 09 R 3 79 PH PH AR OS MA CY 75 #5 MG 91 CA PS UL E Procedures Procedure DOS Code Location Performer Comment GONADOTRO 03087 [facility] PIN 7 [facility] [place] [address] [facility] INCOMPLET 7 [facility] E INC INC ANY TRIMESTER SURGICAL US PREG 50571 [facility] UTERUS 7 [facility] REAL TIME INC INC W/IMAGE DCMTN TRANSVAG COMPREHEN 45012 [facility] SIVE 7 [facility] METABOLIC INC INC PANEL BLOOD 62216 [facility] COUNT 7 [facility] COMPLETE INC INC AUTO&[place] [address] [facility] INFUSION 7 [facility] THERAPY/P INC INC ROPHYLAXI S /DX 1ST TO 1 HR BLOOD 81550 [facility] COUNT 7 [facility] COMPLETE INC INC AUTO&AUTO DIFRNTL WBC URNLS DIP 32612 [facility] 7 [facility] STICK/TAB INC INC LET REAGENT AUTO MICROSCOP Y GONADOTRO 99446 [facility] PIN 7 [facility] CHORIONIC INC INC QUANTITAT [place] US PREG 66693 [facility] UTERUS 7 [facility] REAL TIME INC INC W/IMAGE DCMTN TRANSVAG URINE 22081 [facility] 7 [facility] TEST INC INC VISUAL COLOR CMPRSN METHS SMR PRIM 95397 [facility] SRC WET 7 [facility] MOUNT INC INC NFCT AGT TISS CARLYN 94354 [facility] SLIDE 7 [facility] SAMPS INC INC SKN/HR/NL S FNGI/ECTO PARASIT URINE 73491 [facility] ESPANA 7 PHYSICIAN TEST GROUP VISUAL COLOR CMPRSN METHS DRUG TEST 12204 [facility] ESPANA PRSMV 7 PHYSICIAN QUAL DIR GROUP OPTICAL OBS PER DAY IAADIADOO 42749 [facility] 7 [facility] INFLUENZA INC INC IAADIADOO 02173 [facility] 7 [facility] STREPTOCO INC INC CCUS GROUP A REMOVAL 84804 A C CORINNE IMPACTED 7 TYREE SEE CERUMEN PSC IRRIGATIO N/[place] [address] [facility] HEPATITIS 7 [facility] B INC INC SURFACE ANTIGEN HEPATITIS 60005 [facility] C 7 [facility] ANTIBODY INC INC OPHTH 54146 [facility] MEDICAL 5 ANG ANG XM&EVAL COMPRHNSV ESTAB PT 1/> INSJ 51009 [facility] MALORIE NON-BIODE 4 PHYSICIAN MATTY GRADABLE S GROUP DRUG DELIVERY IMPLANT ETONOGEST J7307 [facility] MALORIE REL 4 PHYSICIAN MATTY CNTRACPT S GROUP IMPL SYS INCL IMPL & SPL URINE 20601 [facility] MALORIE 4 PHYSICIAN MATTY TEST S GROUP VISUAL COLOR CMPRSN METHS CYTP C/V 58483 [facility]IN 4 [facility] ER JR ABILIO LYR PREPJ SCR MNL RESCR PHYS 50081 [facility] ZAVALETAE DELIVERY 4 MATTY MATTY ONLY W/POSTPAR JESUSITA CARE ANESTHESI 68233 [facility] SHAYNA A 4 ANESTH [place] OF THE DELIVERY BLUE ONLY 26794 [facility] ALLRAN JR DELIVERY 4 PHYSICIAN JUAN PABLO ONLY S GROUP US PREG 95921 [facility] UTERUS 4 MATTY MATTY REAL TIME F/U TRNSABDL PER FETUS DOPPLER 54547 [facility] VELOCIMET 4 MATTY MATTY RY UMBILICAL ARTERY 81159 [facility] BIOPHYSIC 4 MATTY MATTY AL PROFILE W/O NON-STRES S TESTING 95538 [facility] BIOPHYSIC 4 MATTY MATTY AL PROFILE W/O NON-STRES S TESTING DOPPLER 38053 [facility] VELOCIMET 4 MATTY MATTY RY UMBILICAL ARTERY US PREG 18415 [facility] UTERUS 4 MATTY MATTY REAL TIME F/U TRNSABDL PER FETUS CUL BACT 22523 COMBINED COMBINED XCPT 4 PHYSICIAN PHYSICIAN URINE S LA S LA BLOOD/STO OL AEROBIC ISOL 02426 [facility] BIOPHYSIC 4 MATTY MATTY AL PROFILE W/O NON-STRES S TESTING DOPPLER 66746 [facility] VELOCIMET 4 MATTY MATTY RY UMBILICAL ARTERY US PREG 89217 [facility] UTERUS 4 MATTY MATTY REAL TIME F/U TRNSABDL PER FETUS THERAPEUT 57959 [facility] IC 4 [facility] PROPHYLAC INC INC TIC/DX INJECTION SUBQ/IM 44938 [facility] NONSTRESS 4 MATTY MATTY TEST CULTURE 62027 [facility] BACTERIAL 4 [facility] II BHARAT [place] [address] [facility] INFUSION 4 [facility] THERAPY/P INC INC ROPHYLAXI S /DX 1ST TO 1 HR URNLS DIP 81901 [facility] 4 [facility] STICK/TAB INC INC LET REAGENT AUTO MICROSCOP Y GLUCOSE 36464 [facility] TOLERANCE 4 MATTY MATTY TEST GTT 3 SPECIMENS US PREG 26686 [facility] UTERUS 4 MATTY MATTY AFTER 1ST TRIMEST 1/ GESTATION TRANSFERA 42447 [facility] SE 4 [facility] ASPARTATE INC INC AMINO AST SGOT TRANSFERA 49576 [facility] SE 4 [facility] ALANINE INC INC AMINO ALT SGPT BASIC 70025 [facility] METABOLIC 4 [facility] [place]EL [place] [address] [facility] BLOOD/URI 4 [facility] C ACID INC INC THROMBOPL 29557 [facility] ASTIN 4 [facility] TIME INC INC PARTIAL PLASMA/WH OLE BLOOD FIBRIN 98580 [facility] DGRADJ 4 [facility] PRODUCTS INC INC D-DIMER QUAL/SEMI ODALIS FIBRINOGE 63636 [facility] N 4 [facility] ACTIVITY INC INC PROTHROMB 44508 [facility] IN TIME 4 [facility] INC INC BLOOD 37158 [facility] COUNT 4 [facility] COMPLETE INC INC AUTO&AUTO DIFRNTL WBC US PREG 92109 [facility] UTERUS 4 MATTY MATTY REAL TIME W/IMAGE DCMTN TRANSVAG CYTP 97057 [facility] MARTINEZ CERVICAL/ 4 VAL VAL VAGINAL REQ INTERP PHYSICIAN CYTP C/V 46537 MARTINEZ MARTINEZ AUTO THIN 4 VAL VAL LYR PREPJ SCR MNL RESCR PHYS IADNA 39717 MARTINEZ MARTINEZ NEISSERIA 4 VAL VAL GONORRHOE AE AMPLIFIED PROBE TQ IADNA 58075 MARTINEZ MARTINEZ CHLAMYDIA 4 VAL VAL TRACHOMAT IS AMPLIFIED PROBE TQ URINE 62506 [facility] 4 MATTY MATTY TEST VISUAL COLOR CMPRSN METHS Encounters Encounter Start End Date Code Location Performer Type Date HOSPITAL [facility] 7 7 [facility] OUTPATIEN INC T EMERGENCY 72204 [facility] 7 7 [facility] DEPARTMEN INC T VISIT HIGH/URGE NT SEVERITY EMERGENCY 13974 [facility] 7 7 [facility] DEPARTMEN INC T VISIT LOW/MODER SEVERITY HOSPITAL [facility] - 7 7 [facility] OUTPATIEN INC T EMERGENCY 33373 [facility] DEPT 7 7 PHYSICIAN VISIT S, PLLC HIGH SEVERITY& THREAT FUNCJ OFFICE 54742 [facility] OUTPATIEN 7 7 PHYSICIAN T VISIT GROUP 15 MINUTES OFFICE 96467 A C KILPELA OUTPATIEN 7 7 TYREE SEE T VISIT PSC 15 MINUTES OFFICE 88871 A C KILPELA OUTPATIEN 7 7 TYREE SEE T VISIT PSC 25 MINUTES HOSPITAL [facility] - 7 7 [facility] OUTPATIEN INC T OFFICE 81167 [facility] OUTPATIEN 7 7 [facility] T NEW 10 INC MINUTES OFFICE 84598 A C CORINNE OUTPATIEN 7 7 TYREE SEE T VISIT PSC 15 MINUTES OFFICE 49749 [facility] ESPANA OUTPATIEN 7 7 PHYSICIAN T VISIT GROUP 15 MINUTES HOSPITAL [facility] - 7 7 [facility] OUTPATIEN INC T OFFICE 40575 [facility] ESP[facility] OUTPATIEN 5 5 PHYSICIAN MATTY T VISIT S GROUP 15 MINUTES OFFICE 63463 A C FIELD AMB OUTPATIEN 5 5 TYREE SEE T VISIT PSC 15 MINUTES OFFICE 84523 [facility] OUTPATIEN 4 4 PHYSICIAN MATTY T VISIT S GROUP 25 MINUTES OFFICE 42943 [facility] OUTPATIEN 4 4 PHYSICIAN MATTY T VISIT S GROUP 15 MINUTES OFFICE 89357 [facility] OUTPATIEN 4 4 MATTY MATTY T VISIT 15 MINUTES OFFICE 52065 [facility] OUTPATIEN 4 4 MATTY MATTY T VISIT 15 MINUTES OFFICE 05856 [facility] OUTPATIEN 4 4 MATTY MATTY T VISIT 15 MINUTES OFFICE 11494 [facility] OUTPATIEN 4 4 MATTY MATTY T VISIT 15 MINUTES [facility]OSP[facility] - 4 4 [facility] OUTPATIEN INC T OFFICE 79243 [facility] OUTPATIEN 4 4 MATTY MATTY T VISIT 15 MINUTES [facility]OSP[facility] - 4 4 [facility] OUTPATIEN INC T OFFICE 16539 [facility] OUTPATIEN 4 4 MATTY MATTY T VISIT 15 MINUTES OFFICE 60973 [facility] OUTPATIEN 4 4 MATTY MATTY T VISIT 15 MINUTES OFFICE 83990 [facility] OUTPATIEN 4 4 MATTY MATTY T VISIT 5 MINUTES OFFICE 40312 [facility] OUTPATIEN 4 4 MATTY MATTY T VISIT 15 MINUTES OFFICE 97080 [facility] OUTPATIEN 4 4 MATTY MATTY T VISIT 15 MINUTES OFFICE 10121 [facility] OUTPATIEN 4 4 MATTY MATTY T VISIT 15 MINUTES OFFICE 99339 [facility] OUTPATIEN 4 4 MATTY MATTY T VISIT 15 MINUTES [facility]OSP[facility] - 4 4 [facility] OUT[facility]IEN INC T OFFICE 48799 [facility] OUTPATIEN 4 4 MATTY MATTY T VISIT 15 MINUTES OFFICE 74780 FIELD AMB FIELD AMB OUTPATIEN 4 4 T VISIT 15 MINUTES OFFICE 94637 [facility] OUTPATIEN 4 4 MATTY MATTY T VISIT 15 MINUTES OFFICE 11174 [facility] OUTPATIEN 4 4 MATTY MATTY T VISIT 25 MINUTES
--- OUTSIDE RECORDS SUMMARY | 2017-06-28 18:37 | External Medical Summary Rpt ---
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: POSTOP H H DUE AT 1300 Hematocri 37.0 - % Normal No Apr 16 t [Volume 47.0 informati 2016 1:08 on in PM Fraction] source of Blood data Hemoglobi 12.2 - g/dL No No Apr 16 n 16.2 informati informati 2016 1:08 [Mass/vol on in on in PM ume] in source source Blood data data Choriogonadotropin.beta subunit ( test) [Presence] in Serum or Plasma Observa Value Referen Units Interpr Notes Date tion ce etation Range Choriog 5131.7 No mIU/ML No NON-PRE Apr 16 onadotr informa informa GNANT 2017 opin.be tion in tion in FEMALES 8:42 AM ta source source subunit data data REFEREN CE (pregna RANGE = ncy 0 - 6 test) mIU/mLG [Presen estatio ce] in nal Age Serum or HCG Plasma RANGE0. 2 WEEKS 5 - 501-2 WEEKS 50 - 5002-3 WEEKS 100 - 5,0003- 4 WEEKS 500 - 10,0004 -5 WEEKS 1,000 - 50,0005 -6 WEEKS 10,000 - 100,000 6-8 WEEKS 15,000 - 200,000 2-3 MONTHS 10,000 - 100,000 Comprehensive metabolic 2000 panel in Serum or Plasma Observa Value Referen Units Interpr Notes Date tion ce etation Range Albumin/G 1.1 - 1.8 No Normal No Apr 16 lobulin informati informati 2016 8:42 [Mass on in on in AM ratio] in source source Serum or data data Plasma Albumin 3.4 - 5.0 gm/dL Normal No Apr 16 [Mass/vol informati 2016 8:42 ume] in on in AM Serum or source Plasma data Alkaline 46 - 116 U/L Normal No Apr 16 phosphata informati 2016 8:42 se on in AM [Enzymati source c data activity/ volume] in Serum or Plasma Bilirubin 0.2 - 1.0 mg/dL Normal No Apr 16 .total informati 2016 8:42 [Mass/vol on in AM ume] in source Serum or data Plasma Urea 7 - 18 mg/dL Low No Apr 16 nitrogen informati 2016 8:42 [Mass/vol on in AM ume] in source Serum or data Plasma Calcium 8.5 - mg/dL Normal No Apr 16 [Mass/vol 10.1 informati 2016 8:42 ume] in on in AM Serum or source Plasma data Chloride 98 - 107 mmoL/L Normal No Apr 16 [Moles/vo informati 2016 8:42 lume] in on in AM Serum or source Plasma data Carbon 21.0 - mmoL/L Normal No Apr 16 dioxide, 32.0 informati 2016 8:42 total on in AM [Moles/vo source lume] in data Serum or Plasma Creatinin 0.55 - mg/dL Normal No Apr 16 e 1.02 informati 2016 8:42 [Mass/vol on in AM ume] in source Serum or data Plasma Creatinin 50 - 200 ML/MIN Normal No Apr 16 e renal informati 2016 8:42 clearance on in AM source predicted data by Cockcroft -Gault formula Estimated 59- ML/MIN No REFERENCE Apr 16 informati RANGE: 2017 8:42 glomerula on in >60 AM r source ML/MIN/1. filtratio data 73 SQUARE n rate METERSIf (GF this patient is -A merican, then multiply theresult by 1.210. Globulin 1.3 - 3.2 gm/dL Normal No Apr 16 [Mass/vol informati 2017 8:42 ume] in on in AM Serum source data Glucose 74 - 106 mg/dL High No Apr 16 [Mass/vol informati 2017 8:42 ume] in on in AM Serum or source Plasma data Potassium 3.5 - 5.1 mmoL/L Low No Apr 16 informati 2017 8:42 [Moles/vo on in AM lume] in source Serum or data Plasma Sodium 136 - 145 mmoL/L Normal No Apr 16 [Moles/vo informati 2017 8:42 lume] in on in AM Serum or source Plasma data Aspartate 15 - 37 U/L Low No Apr 16 informati 2016 8:42 aminotran on in AM sferase source [Enzymati data c activity/ volume] in Serum or Plasma Alanine 12 - 78 U/L Normal No Apr 16 aminotran informati 2016 8:42 sferase on in AM [Enzymati source c data activity/ volume] in Serum or Plasma Protein 6.4 - 8.2 gm/dL Normal No Apr 16 [Mass/vol informati 2016 8:42 ume] in on in AM Serum or source Plasma data CBC W Auto Differential panel in Blood Observa Value Referen Units Interpr Notes Date tion ce etation Range Basophils 0 - 0.2 K/MM3 Normal No Apr 16 informati 2016 8:42 [#/volume on in AM ] in source Blood by data Automated count Basophils 0.1 - 2.0 % Normal No Apr 16 / informati 2016 8:42 leukocyte on in AM s in source Blood by data Automated count Eosinophi 0.0 - 0.4 K/mm3 Normal No Apr 16 ls informati 2016 8:42 [#/volume on in AM ] in source Blood by data Automated count Eosinophi 0.1 - % Normal No Apr 16 ls/100 12.0 informati 2016 8:42 leukocyte on in AM s in source Blood by data Automated count Granulocy 1.8 - 7.8 K/mm3 Normal No Apr 16 isaias informati 2016 8:42 [#/volume on in AM ] in source Blood by data Automated count Granulocy 37.0 - % Normal No Apr 16 isaias/100 80.0 informati 2016 8:42 leukocyte on in AM s in source Blood by data Automated count Hematocri 37.0 - % Normal No Apr 16 t [Volume 47.0 informati 2016 8:42 on in AM Fraction] source of Blood data Hemoglobi 12.2 - g/dL Normal No Apr 16 n 16.2 informati 2016 8:42 [Mass/vol on in AM ume] in source Blood data Lymphocyt 0.7 - 4.5 K/mm3 Normal No Apr 16 es informati 2016 8:42 [#/volume on in AM ] in source Unspecifi data ed specimen by Automated count Lymphocyt 10 - 50.0 % Normal No Apr 16 es informati 2016 8:42 [#/volume on in AM ] in source Unspecifi data ed specimen by Automated count Erythrocy 27 - 31.2 pg High No Apr 16 te mean informati 2016 8:42 corpuscul on in AM ar source hemoglobi data n [Entitic mass] Erythrocy 31.8 - g/dl Normal No Apr 16 te mean 35.4 informati 2016 8:42 corpuscul on in AM ar source hemoglobi data n concentra tion [Mass/vol ume] by Automated count Erythrocy 82.2 - fl Normal No Apr 16 te mean 97.8 informati 2016 8:42 corpuscul on in AM ar volume source [Entitic data volume] by Automated count Monocytes 0.1 - 1.0 K/mm3 Normal No Apr 16 informati 2016 8:42 [#/volume on in AM ] in source Blood by data Automated count Monocytes 1.7 - 9.3 % Normal No Apr 16 /100 informati 2016 8:42 leukocyte on in AM s in source Blood by data Automated count Platelet 7.4 - fl Normal No Apr 16 mean 10.4 informati 2016 8:42 volume on in AM [Entitic source volume] data in Blood by Automated count Platelets 142 - 424 K/mm3 Normal No Apr 16 informati 2016 8:42 [#/volume on in AM ] in source Blood data Erythrocy 4.2 - 5.4 M/mm3 Normal No Apr 16 isaias informati 2016 8:42 [#/volume on in AM ] in source Amniotic data fluid Erythrocy 11.5 - % Normal No Apr 16 te 17.5 informati 2016 8:42 distribut on in AM ion width source [Entitic data volume] by Automated count Leukocyte 4.8 - K/MM3 Normal No Apr 16 s 10.8 informati 2016 8:42 [#/volume on in AM ] in source Blood data Choriogonadotropin.beta subunit ( test) [Presence] in Serum or Plasma Observa Value Referen Units Interpr Notes Date tion ce etation Range Choriog 5141.9 No mIU/ML No NON-PRE Apr 15 onadotr informa informa GN 2017 opin.be tion in tion in FEMALES 2:20 PM ta source source subunit data data REFEREN CE (pregna RANGE = ncy 0 - 6 test) mIU/mLG [Presen estatio ce] in nal Age Serum or HCG Plasma RANGE0. 2 WEEKS 5 - 501-2 WEEKS 50 - 5002-3 WEEKS 100 - 5,0003- 4 WEEKS 500 - 10,0004 -5 WEEKS 1,000 - 50,0005 -6 WEEKS 10,000 - 100,000 6-8 WEEKS 15,000 - 200,000 2-3 MONTHS 10,000 - 100,000 CBC W Auto Differential panel in Blood Observa Value Referen Units Interpr Notes Date tion ce etation Range Basophils 0 - 0.2 K/MM3 Normal No Apr 15 informati 2016 2:20 [#/volume on in PM ] in source Blood by data Automated count Basophils 0.1 - 2.0 % Normal No Apr 15 informati 2016 2:20 leukocyte on in PM s in source Blood by data Automated count Eosinophi 0.0 - 0.4 K/mm3 Normal No Apr 15 ls informati 2016 2:20 [#/volume on in PM ] in source Blood by data Automated count Eosinophi 0.1 - % Normal No Apr 15 ls/100 12.0 informati 2016 2:20 leukocyte on in PM s in source Blood by data Automated count Granulocy 1.8 - 7.8 K/mm3 Normal No Apr 15 isaias informati 2016 2:20 [#/volume on in PM ] in source Blood by data Automated count Granulocy 37.0 - % Normal No Apr 15/100 80.0 informati 2016 2:20 leukocyte on in PM s in source Blood by data Automated count Hematocri 37.0 - % Normal No Apr 15 t [Volume 47.0 informati 2016 2:20 on in PM Fraction] source of Blood data Hemoglobi 12.2 - g/dL Normal No Apr 15 n 16.2 informati 2016 2:20 [Mass/vol on in PM ume] in source Blood data Lymphocyt 0.7 - 4.5 K/mm3 Normal No Apr 15 es informati 2016 2:20 [#/volume on in PM ] in source Unspecifi data ed specimen by Automated count Lymphocyt 10 - 50.0 % Normal No Apr 15 es informati 2016 2:20 [#/volume on in PM ] in source Unspecifi data ed specimen by Automated count Erythrocy 27 - 31.2 pg High No Apr 15 te mean informati 2016 2:20 corpuscul on in PM ar source hemoglobi data n [Entitic mass] Erythrocy 31.8 - g/dl Normal No Apr 15 te mean 35.4 informati 2016 2:20 corpuscul on in PM ar source hemoglobi data n concentra tion [Mass/vol ume] by Automated count Erythrocy 82.2 - fl Normal No Apr 15 te mean 97.8 informati 2016 2:20 corpuscul on in PM ar volume source [Entitic data volume] by Automated count Monocytes 0.1 - 1.0 K/mm3 Normal No Apr 15 informati 2016 2:20 [#/volume on in PM ] in source Blood by data Automated count Monocytes 1.7 - 9.3 % Normal No Apr 15 /100 informati 2016 2:20 leukocyte on in PM s in source Blood by data Automated count Platelet 7.4 - fl Low No Apr 15 mean 10.4 informati 2016 2:20 volume on in PM [Entitic source volume] data in Blood by Automated count Platelets 142 - 424 K/mm3 Normal No Apr 15 informati 2016 2:20 [#/volume on in PM ] in source Blood data Erythrocy 4.2 - 5.4 M/mm3 Normal No Apr 15 isaias informati 2016 2:20 [#/volume on in PM ] in source Amniotic data fluid Erythrocy 11.5 - % Normal No Apr 15 te 17.5 informati 2016 2:20 distribut on in PM ion width source [Entitic data volume] by Automated count Leukocyte 4.8 - K/MM3 Normal No Apr 15 s 10.8 informati 2016 2:20 [#/volume on in PM ] in source Blood data Chlamydia/GC Amplification Observa Value Referen Units Interpr Notes Date tion ce etation Range Chlamyd Negativ Negativ No No No Apr 15 ia e e informa informa informa 2017 trachom tion in tion in tion in 1:47 PM atis source source source rRNA data data data [Presen ce] in Unspeci fied specime n by Probe & target amplifi cation method Neisser Negativ Negativ No No Perform Apr 15 ia e e informa informa ed at: 2017 gonorrh tion in tion in CB - 1:47 PM oeae source source [facility] rRNA data data [Presen [place] ce] in [address], [place], [place] Probe & [id number] target 69Lab Directo amplifi r: cation Vincent method Ricchiu ti PhD, Phone: [phone] Choriogonadotropin.beta subunit [Units] in 24 hour Urine Observa Value Referen Units Interpr Notes Date ti ce etation Range Choriogon NEG No No No Apr 15 adotropin informati informati informati 2016 1:47 .beta on in on in on in PM subunit source source source [Units] data data data in 24 hour Urine HBsAg Screen Observa Value Referen Units Interpr Notes Date tion ce etation Range Hepatit Negativ Negativ No No Perform Apr 10 is B e e informa informa ed at: 2017 virus tion in tion in CB - 12:06 surface source source [facility] PM Ag data data [Presen [place]6 ce] in 370 Serum [facility] [id number] 69Lab Directo r: Jarvis sanchez PhD, Phone: [phone] Reagin Ab [Titer] in Serum by RPR Observa Value Referen Units Interpr Notes Date ti ce etation Range Reagin Ab NonRea<1: No No Performed Apr 10 [Titer] 1 informati informati at: CB 2017 in Serum on in on in - [facility] 12:06 PM by RPR source source data data [id number] [place], [place] [id number] [employer] Car Repairman: Jarvis Feldman PhD, Phone: [phone] Rubella virus IgG Ab [Units/volume] in [...] % Normal No Apr 10 isaias/100 80.0 2016 leukocyte on in 12:06 PM s [...] 50.0 % Normal No Apr 10 es inform2016 [#/volume [...] - 1.0 K/mm3 Normal No Apr 10 inform2016 [#/volume on in 12:06 PM ] in source Blood by data Automated count Monocytes 1.7 - 9.3 % Normal No Apr 10 /100 inform2016 leukocyte on in 12:06 PM s in source Blood by data Automated count Platelet 7.4 - fl Low No Apr 10 mean 10.4 inform2016 volume on in 12:06 PM [Entitic source volume] data in Blood by Automated count Platelets 142 - 424 K/mm3 Normal No Apr 10 inform2016 [#/volume on in 12:06 PM ] [...]
--- OUTSIDE RECORDS SUMMARY | 2017-06-28 18:37 | External Medical Summary Rpt | CCD ---
Demographics Preferred Language [place] African Marital Status Unknown Muslim Affiliation Unknown Race Unknown Ethnic Group Unknown Author Author , NICK ROMERO Address Unknown Phone Immunization No patient found.
--- OUTSIDE RECORDS SUMMARY | 2017-06-28 18:37 | External Medical Summary Rpt ---
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: POSTOP H H DUE AT 1300 Hematocri [...] data [Presen [place] ce] in [address], specime [place], [place] Probe & [id number] target 69Lab Directo amplifi r: cation Vincent method Ricchiu ti PhD, Phone: [phone] Choriogonadotropin.beta subunit [Units] in 24 hour [...] data [Presen [place] ce] in 370 Serum [facility] [id number] 69Lab Directo r: Jarvis sanchez PhD, Phone: [phone] Reagin Ab [Titer] in Serum by RPR Observa Value Referen Units Interpr Notes Date ti ce etation Range Reagin Ab NonRea<1: No No Performed Apr 10 [Titer] 1 informati informati at: CB 2017 in Serum on in on in - [facility] 12:06 PM by RPR source source data data [id number] [place], [place] [id number] Developer Relations Manager: Jarvis Feldman PhD, Phone: [phone] Rubella virus IgG Ab [Units/volume] in [...]
--- OUTSIDE RECORDS SUMMARY | 2017-06-28 18:37 | External Medical Summary Rpt | CCD ---
Demographics Preferred Language [place] Marital Status Unknown Lutheran Affiliation Unknown Race Unknown Ethnic Group Unknown Author Author , NICK ROMERO Address Unknown Phone Immunization No patient found.
== END 2017-06-23 13:01 | disposition home or self-care (01) ==
LOC: UTC 11:53
DX: J32.1 Chronic frontal sinusitis (principal); Z88.0 Allergy status to penicillin; Z88.2 Allergy status to sulfonamides; I10 Essential (primary) hypertension; F17.210 Nicotine dependence, cigarettes, uncomplicated